=== PATIENT | female | born 1945 | race Caucasian/White ===

== ENCOUNTER 2019-04-10 10:33 | Outpatient (CLI) | payer MEDICARE, OTHER, SELFPAY ==
--- NOTE | ~2019-04-10 | US_ITS ---
US venous doppler [facility] DATE: 04/10/2019 11:37 INDICATION: Bilateral lower extremity pain TECHNIQUE: Real-time and color flow imaging and Doppler analysis of the veins of the lower extremitie s COMPARISON: None FINDINGS: The greater saphenous veins are patent. There is spontaneous and phasic flow and normal aug mentation and color flow signal and normal compression of the deep veins of both legs. IMPRESSION: No evidence of deep venous thrombosis of either lower extremity Reviewed, dictated and finalized at Location [facility]. Reviewed, dictated and finalized at location B. [place] [employer] SPECIALIST
== END 2019-04-10 10:34 | disposition home or self-care (01) ==
LOC: ANHIMG 10:38
PROVIDERS: PCP Family Medicine; Visit Provider Family Medicine
DX: R60.9 Edema, unspecified (principal); M79.669 Pain in unspecified lower leg
CPT/HCPCS: 93970

== ENCOUNTER 2019-06-16 21:51 | Inpatient (IN) | payer MEDICARE, OTHER, SELFPAY ==
--- NOTE | ~2019-06-16 | CT_ITS ---
EXAMINATION: CT brain wo con DATE: 06/16/2019 22:02 INDICATION: Cerebral vascular accident. TECHNIQUE: Computed tomography (CT) of the head was performed without intravenous contrast. The mA wa s adjusted according to patient size. Iterative reconstruction technique was employed. The dose-lengt h product was 983.67 mGy-cm. COMPARISON: Head CT 08/08/2018 FINDINGS: There is mild motion artifact. There are scattered areas of low attenuation in the cerebral white matter, which is within normal limits for the patient's age. There is no intracranial hemorrha ge, acute infarction, or abnormal intracranial mass lesion. The ventricles are normal in size. There is mild mucosal thickening in the ethmoid sinuses. The mastoid air cells are normal. The orbits are n ormal. IMPRESSION: 1. Normal aging brain. Reviewed, dictated and finalized at location A. IMPRESSION: 1. Normal aging brain.
--- NOTE | ~2019-06-16 | XR_ITS ---
EXAMINATION: XR humerus LT DATE: 06/16/2019 22:57 INDICATION: Left upper arm injury. TECHNIQUE: 2 views of left humerus were obtained. COMPARISON: None. FINDINGS: Bone alignment is normal. No fracture. There is mild osteoarthritis of glenohumeral joint a nd moderate osteoarthritis of acromioclavicular joint. IMPRESSION: 1. Polyarticular osteoarthritis. Reviewed, dictated and finalized at location A.
--- NOTE | ~2019-06-16 | MR_ITS ---
EXAMINATION: MR brain/brain stem wo/w con DATE: 06/17/2019 09:33 INDICATION: Cerebrovascular accident. TECHNIQUE: Magnetic resonance imaging (MRI) of the brain and brainstem was performed without and with 17 mL MultiHance intravenous contrast. Sequences included sagittal and axial T1-weighted FSE, axial diffusion-weighted FS EPI, axial T2*-weighted GRE, axial T2-weighted FLAIR Propeller, and axial T2-we ighted Propeller. Postcontrast sequences included axial and coronal T1-weighted FSE. Apparent diffusi on coefficient (ADC) maps were created. COMPARISON: Head CT 06/16/2019, brain MRI 09/30/2017 FINDINGS: There are scattered areas of nonspecific increased T2-weighted signal intensity in the cere bral white matter, which is within normal limits for the patient's age. There is no intracranial hemo rrhage, acute infarction, or abnormal intracranial mass lesion. The ventricles are normal in size. Th e mastoid air cells are normal. There is mild mucosal thickening in the paranasal sinuses. There is a mucous retention cyst in left maxillary sinus. The orbits are normal. IMPRESSION: 1. Normal aging brain. Reviewed, dictated and finalized at location A. IMPRESSION: 1. Normal aging brain.
--- NOTE | ~2019-06-16 | XR_ITS ---
EXAMINATION: XR chest 2V DATE: 06/16/2019 22:57 INDICATION: Weakness. Transient alteration of awareness. TECHNIQUE: Frontal and lateral views of the chest were obtained. COMPARISON: Chest single view 12/29/2017, chest CT 09/27/2017 FINDINGS: The patient is rotated to her left on the frontal view. There is no pneumonia, pleural effu maine, or pneumothorax. The heart size is normal. IMPRESSION: 1. No acute cardiopulmonary disease. Reviewed, dictated and finalized at location A.
[2019-06-16 22:01] VITALS: BP 104/54; PULSE 63; RESP 20; TEMP 36.7; O2SAT 98
[2019-06-16 22:05] VITALS: BP 104/54; PULSE 58; RESP 20; O2SAT 100
--- NOTE | 2019-06-16 22:09 | ECG_ITS ---
Measurements Intervals [place] Rate: 58 P: 22 CT: 188 QRS: -14 QRSD: 121 T: 1 QT: 426 QTc: 422 Interpretive Statements SINUS BRADYCARDIA POSSIBLE LEFT ATRIAL ENLARGEMENT INTRAVENTRICULAR CONDUCTION DELAY POSSIBLE LEFT VENTRICULAR HYPERTROPHY DELAYED PRECORDIAL R/S TRANSITION BORDERLINE ST-T WAVE ABNORMALITY- ANT/INF LEADS BORDERLINE ECG Electronically Signed On 06-17-2019 7:02:18 CDT by Chaparro Ramos D.O.
--- NOTE | 2019-06-16 22:14 | ED.NEUROSD ---
HPI - Neuro Symptoms/Deficit General Chief Complaint: Suspected CVA Stated Complaint: AMS Time Seen by Provider: 06/16/19 21:55 Source: patient Mode of arrival: ambulatory Limitations: no limitations History of Present Illness HPI Narrative: Patient is a 73-year-old female who presents to the emergency department via EMS with possible stroke. EMS report that patient last known normal was approximately 1600 today. however states patient has been having intermittent symptoms for 3 days. Patient has had slurred speech and multiple falls. Patient has bruising to her left upper arm and reportedly hit her head today. Patient reports that her speech is abnormal. She denies any focal weakness. She is denying any headache at this time. Onset (ago): day(s) (3) Location: speech History of same: No Context: recent fall (Multiple) Related Data Home Medications Medication Instructions Recorded Confirmed acetaminophen 500 mg tablet 1,000 mg PO Q6H PRN tablet 03/04/19 buspirone 5 mg tablet 7.5 mg PO BID tablet 03/04/19 carbidopa 25 mg-levodopa 100 mg 1 tablet PO BID 03/04/19 tablet glucosamine sulfate 250 cap PO 03/04/19 mg-chondroitin sulfate A 200 mg capsule hydrocodone 7.5 mg-acetaminophen 1 tablet PO Q6H PRN 03/04/19 325 mg tablet hydroxyzine HCl 50 mg tablet 50 mg PO QID PRN 03/04/19 lidocaine 5 % topical patch 1 patch TOPICAL DAILY 03/04/19 lorazepam 1 mg tablet 1 mg PO TID PRN 03/04/19 melatonin 10 mg tablet PO .QHS tablet 03/04/19 multivitamin 1 tablet PO DAILY 03/04/19 quetiapine 50 mg tablet 50 mg PO .QHS tablet 03/04/19 mirtazapine mg 06/16/19 06/16/19 quetiapine 06/16/19 tizanidine mg 06/16/19 Allergies Allergy/AdvReac Type Severity Reaction Status Date / Time amoxicillin Allergy Unknown Unknown Verified 06/16/19 22:09 Review of Systems Review of Systems: All systems reviewed & are unremarkable except as noted in HPI and below Neurologic: Reports Abnormal speech present, Reports frequent falls, Denies headache(s) and Denies focal weakness PMFSH Past Medical History Medical History Anxiety Cardiomegaly Essential (primary) hypertension Parkinson's disease PVD (peripheral vascular disease) Surgical History Surgical History Status post total right knee replacement Social History Social History Social History: Smoking status: Never smoker Second hand tobacco smoke exposure: No Alcohol intake: never Substance use: never Substance use type: does not use Gender identity (if verbalized by the patient): Female Exam Const: General: cooperative, no acute distress and alert Nutritional Appearance: well nourished Orientation/consciousness: oriented to person, oriented to place and No oriented to time (Knows month, but disoriented to year) HENMT: Mouth: Yes lip normal and Yes moist mucous membranes Eyes: Conjunctivae: conjunctivae normal Pupils: Equal, round and reactive pupils present EOM: EOMs intact bilaterally Resp: Effort & Inspection: normal respiratory effort Auscultation: clear to auscultation bilaterally Cardio: Rate: regular rate Rhythm: regular rhythm GI: GI Palp: Yes Soft to palpation and No Tenderness to palpation present (GI) Auscultation: normal bowel sounds Skin: General skin exam: normal color Neuro: General: oriented to person, oriented to place and No oriented to time Cranial nerves: Yes CN's II-XII intact bilaterally Cognition (Neuro): normal cognition Speech: Abnormal speech present slurred Motor exam (neuro): 5/5 motor strength present throughout and Pronator motor function not present Sensory Exam: normal sensation Extrem: General: normal to inspection, full ROM and no clubbing, cyanosis or edema Psych: Mental Status: mental status grossly nor
[2019-06-16 22:33] LABS: Basophils Percent Auto 0.4 % (0.2-1.2); Eosinophils Absolute Auto 0.1 K/mm3 (0-0.3); Eosinophils Percent Auto 1.8 % (0-4.4); Hemoglobin 10.9 g/dL (12.0-15.0); Immature Granulocyte Absolute 0.02 K/mm3 (0.00-0.031); Immature Granulocyte Percent A 0.3 % (0-0.5); Lymphocytes Absolute Auto 1.33 K/mm3 (0.9-3.2); Lymphocytes Percent Auto 18.5 % (18.3-44.2); Mean Corpuscular Hemoglobin 31.2 pg (26-34); Mean Corpuscular Volume 94.6 fl (80-100); Monocytes Absolute Auto 0.5 K/mm3 (0.1-0.6); Monocytes Percent Auto 7.2 % (2.6-8.5); Neutrophils Absolute Auto 5.2 K/mm3 (1.3-6.7); Neutrophils Percent Auto 71.8 % (45.5-73.1); Platelet Count Result 110 k/mm3 (150-375); Red Blood Count 3.49 M/mm3 (4.2-5.4); Red Cell Distribution Width 13.6 % (11.5-14.5); White Blood Count 7.2 K/mm3 (4.5-10.0)
[2019-06-16 22:43] LABS: INR 1.1; Prothrombin Time 13.5 Seconds (11.1-14.7)
[2019-06-16 22:44] LABS: Partial Thromboplastin Time 34.6 SECONDS (22.3-36.8)
[2019-06-16 22:45] LABS: Albumin Level 3.1 g/dL (3.5-5.1); Alkaline Phosphatase 93 U/L (38-126); Aspartate Amino Transferase 21 U/L (14-36); Bilirubin,Total 0.4 mg/dL (0.2-1.3); Blood Urea Nitrogen 35 mg/dL (7-17); Calcium 8.5 mg/dL (8.4-10.2); Carbon Dioxide 28 mmol/L (22-30); Chloride 104 mmol/L (98-107); Estimated Glomerular Filt Rate > 60; Glucose 119 mg/dL (65-105); Potassium 3.8 mmol/L (3.4-5.0); Sodium 136 mmol/L (137-145)
[2019-06-16 22:47] LABS: Add Urine Microscopic? YES; Appearance Urine Clear (Clear); Bilirubin Urine Negative (Negative); Blood Urine Negative (Negative); Color Urine Amber (Yellow); Glucose Urine UA Negative (Negative); Ketones Urine Trace mg/dL (Negative); Leukocyte Esterase Ur Negative LEU/UL (Negative); Mucus Urine Rare /lpf; Nitrate Urine Negative (Negative); Protein Urine Negative (Negative); RBC Urine 0-2 /hpf (0-2); Specific Grav Ur 1.019 (1.001-1.035); Urobilinogen Urine Negative mg/dL (<2.0); WBC Urine 0-3 /hpf
[2019-06-16 22:57] LABS: Troponin I < 0.012 ng/mL (0.000-0.034)
[2019-06-16 23:07] LABS: Alanine Aminotransferase < 4 U/L (4-35)
[2019-06-16 23:58] VITALS: BP 142/74; PULSE 60; RESP 18; O2SAT 100
[2019-06-17] VITALS (8 sets, daily range): BP systolic 114–157; BP diastolic 67–78; PULSE 64–87; RESP 18–20; TEMP 36.1–37; O2SAT 92–98; BMI 32.1
--- NOTE | 2019-06-17 | ECHO_ITS ---
Patient Info Name: Ruth Tejada Age: 73 years : 1945 Gender: Female Ht: 65 in Wt: 193 lbs BSA: 2.04 m2 HR: 78 bpm BP: 157 / 75 mmHg Technical Quality: Good Exam Date: 06/17/2019 10:00 AM Exam Location: [facility] Patient Status: Inpatient Admit Date: 06/17/2019 Staff Ordering Physician: Ronal Scott MD [employer] Press Tender: Dylan Morocho RDCS, RT Attending Provider: Kranthi Landa PA-C Referring Physician: Tyler MASON; Exam Type: CA echo doppler color flow Study Info Indications - r/o cva Complete two-dimensional, color flow and Doppler transthoracic echocardiogram is performed. Summary 1. Left ventricular chamber dimension is moderately enlarged. 2. Left ventricular systolic function is normal, estimated at 60-65%. 3. The left ventricular diastolic function is grade I diastolic dysfunction. 4. E/e' 10 is mildly elevated. 5. Global longitudinal strain is normal at -19.8%. 6. Left atrial chamber dimension is severely enlarged. 7. Right atrial chamber dimension is mildly enlarged. 8. There is mild aortic valve sclerosis. 9. The mitral valve has mildly calcified annulus. 10. There is mild mitral valve regurgitation. 11. There is mild tricuspid valve regurgitation. 12. There is trace pulmonic regurgitation. 13. Dilated inferior vena cava with >50% collapse upon inspiration consistent with elevated right atrial pressure, 10 mmHg. Left Ventricle E/e' 10 is mildly elevated. Global longitudinal strain is normal at -19.8%. Left ventricular chamber dimension is moderately enlarged. Left ventricular systolic function is normal, estimated at 60-65%. The left ventricular diastolic function is grade I diastolic dysfunction. Right Ventricle Right ventricular chamber dimension is normal. Right ventricular systolic function is normal. Left Atria Left atrial chamber dimension is severely enlarged. Right Atria Right atrial chamber dimension is mildly enlarged. Aortic Valve The aortic valve is trileaflet. There is mild aortic valve sclerosis. There is no aortic valve stenosis. There is no aortic valve regurgitation. Pulmonic Valve There is trace pulmonic regurgitation. Mitral Valve The mitral valve has mildly calcified annulus. There is no mitral valve stenosis. There is mild mitral valve regurgitation. Tricuspid Valve There is mild tricuspid valve regurgitation. RVSP is not calculated due to an inadequate TR jet. Pericardium/Pleural There is no pericardial effusion. Inferior Vena Cava Dilated inferior vena cava with >50% collapse upon inspiration consistent with elevated right atrial pressure, 10 mmHg. Aorta The aortic root size at the sinus of Valsalva is normal. Left Ventricular Outflow Tract Name Value Normal LVOT Doppler LVOT Peak Gradient 6 mmHg LVOT Mean Gradient 3 mmHg LVOT VTI 26 cm LVOT VTI/AV VTI Ratio 0.7 Mitral Valve Name Value Normal MV Doppler
--- NOTE | 2019-06-17 00:26 | ADMGEN ---
This patient, Ruth Tejada, was admitted to Medical Room 247-. Patient/family oriented to hospital policies and general routines including ID bracelet, bed and alarms, visiting hours, pain management, procedures, bathroom and other care routines, personal items, smoking policy, room service/diet, and visiting hours. Valuables list has been completed. Information on how to activate the Rapid Response Team has been discussed. Patient/Family are encouraged to report perceived risks to care and to ask questions if they do not understand what they are told or what they should do.
--- NOTE | 2019-06-17 02:50 | PM.IMHP ---
H&P: HPI History of Present Illness Chief complaint: CVA Narrative: This is a pleasant 73 year old female with known Parkinson's disease who presented to the hospital yesterday evening with a complaint of stroke like symptoms. The patient reports that she has had difficulty speaking intermittently for the past three days. She denies any worsening of her Parkinson's symptoms recently. She has been taking her home medications as prescribed. She has noticed over the past few days that she has had slurred speech and has been jumbling up her words. She denies any visual disturbances, blurry vision, or double vision. She denies any difficulty swallowing, numbness, tingling, or focal weakness. She does however report frequent falls and this morning did suffer a fall when she hit her vanity. She sustained bruising of her left upper arm and the left side of her chin. The patient denies any headache, fevers, chills, cough, neck stiffness, chest pain, shortness of breath, abdominal pain, dysuria, hematuria, diarrhea, nausea, vomiting, LE swelling, or passing out. The patient was evaluated in the ER this evening and CT brain was unremarkable for acute pathology. We have been asked to admit the patient to the hospital for stroke workup. No other complaints. Review of Systems Review of Systems: All systems reviewed & are unremarkable except as noted in HPI and below PMFSH Past Medical History Medical History Anxiety Cardiomegaly Essential (primary) hypertension Parkinson's disease PVD (peripheral vascular disease) Surgical History Surgical History Status post total right knee replacement Family History Family History Mother Family history of arthritis Grandparent Family history of Parkinson's disease Other Family history of malignant neoplasm Social History Social History Social History: Smoking status: Never smoker Second hand tobacco smoke exposure: No Alcohol intake: never Substance use: never Substance use type: does not use Gender identity (if verbalized by the patient): Female Spiritual care concerns: No Agree to blood products: Yes Meds Home Medications and Allergies Home Medications Medication Instructions Recorded Confirmed Type lisinopril 30 mg tablet 30 mg PO DAILY #90 tablet 02/19/19 06/17/19 Rx trazodone 100 mg tablet 100 mg PO .QHS PRN #90 tablet 02/19/19 06/17/19 Rx acetaminophen 500 mg tablet 1,000 mg PO Q6H PRN tablet 03/04/19 06/17/19 History hydrocodone 7.5 mg-acetaminophen 1 tablet PO Q6H PRN 03/04/19 06/17/19 History 325 mg tablet melatonin 10 mg tablet 10 mg PO .QHS tablet 03/04/19 06/17/19 History quetiapine 50 mg tablet 50 mg PO .QHS tablet 03/04/19 06/17/19 History furosemide 20 mg tablet 20 mg PO QAM #90 tablet 05/27/19 06/17/19 Rx mirtazapine 15 mg PO .QHS 06/16/19 06/17/19 History tizanidine See Rx Instructions .ROUTE .COMPLEX 06/16/19 06/17/19 History amitriptyline 50 mg PO DAILY 06/17/19 06/17/19 History bupropion HCl 150 mg PO DAILY 06/17/19 06/17/19 History carbidopa-levodopa See Rx Instructions .ROUTE .COMPLEX 06/17/19 06/17/19 History Allergies Allergy/AdvReac Type Severity Reaction Status Date / Time amoxicillin Allergy Unknown Unknown Verified 06/16/19 22:09 Vital Signs Vital Signs - 24 hr 06/16/19 22:01 06/16/19 22:05 06/16/19 23:58 Temperature 36.7 C Pulse Rate 63 58 L 60 Respiratory Rate 20 20 18 Blood Pressure 104/54 L 104/54 L 142/74 H Pulse Oximetry 98 100 100 06/17/19 00:29 Temperature 36.1 C L Pulse Rate 64 Respiratory Rate 20 Blood Pressure 141/78 H Pulse Oximetry 95 Exam Const: General: cooperative, no acute distress, alert and awake Nutritional Appearance: well nourished Orientation/consciousnes
--- NOTE | 2019-06-17 03:54 | PC.NURSE ---
Pt was unaware medications were at bedside. was called to confirm medications and informed me they were with her possessions. Medications labeled and placed in med room.
[2019-06-17 05:37] LABS: Basophils Percent Auto 0.1 % (0.2-1.2); Eosinophils Absolute Auto 0.1 K/mm3 (0-0.3); Eosinophils Percent Auto 1.8 % (0-4.4); Hematocrit 35.4 % (37.0-47.0); Hemoglobin 11.7 g/dL (12.0-15.0); Immature Granulocyte Absolute 0.03 K/mm3 (0.00-0.031); Immature Granulocyte Percent A 0.4 % (0-0.5); Lymphocytes Absolute Auto 1.15 K/mm3 (0.9-3.2); Lymphocytes Percent Auto 16.9 % (18.3-44.2); Mean Corpuscular HGB Conc 33.1 g/dl (32-36); Mean Corpuscular Hemoglobin 31.5 pg (26-34); Mean Corpuscular Volume 95.2 fl (80-100); Mean Platelet Volume 9.8 fl (7.4-10.4); Monocytes Absolute Auto 0.5 K/mm3 (0.1-0.6); Monocytes Percent Auto 7.1 % (2.6-8.5); Neutrophils Percent Auto 73.7 % (45.5-73.1); Platelet Count Result 117 k/mm3 (150-375); Red Blood Count 3.72 M/mm3 (4.2-5.4); Red Cell Distribution Width 13.4 % (11.5-14.5); White Blood Count 6.8 K/mm3 (4.5-10.0)
[2019-06-17 05:45] LABS: Cholesterol 138 mg/dL (0-200); HDL Direct 48 mg/dL; Triglycerides 74 mg/dL (<150)
[2019-06-17 05:49] LABS: Blood Urea Nitrogen 30 mg/dL (7-17); Calcium 8.8 mg/dL (8.4-10.2); Carbon Dioxide 32 mmol/L (22-30); Chloride 108 mmol/L (98-107); Estimated CRCL calculation 53 ml/min; Estimated Glomerular Filt Rate > 60; Glucose 111 mg/dL (65-105); Sodium 141 mmol/L (137-145)
[2019-06-17 05:55] LABS: LDL Cholesterol Direct 57 mg/dL
[2019-06-17] MEDS: CARBIDOPA/LEVODOPA 12.5/50 MG TABLET 1 TABLET PO ×5 (06:08→21:16)
[2019-06-17] MEDS: CARBIDOPA/LEVODOPA 25/100 MG TABLET 2 TABLET BY MOUTH ×5 (06:09→21:18)
[2019-06-17] MEDS: lisinopriL 10 MG TABLET 30 MG PO (08:20)
[2019-06-17] MEDS: AMITRIPTYLINE HCL 25 MG TABLET 50 MG PO (08:21)
[2019-06-17] MEDS: FUROSEMIDE 20 MG TABLET PO (08:21)
[2019-06-17] MEDS: buPROPion HCL XL (24 HR) 150 MG TABCR PO (08:21)
[2019-06-17] MEDS: ASPIRIN 81 MG ENTERIC TABLET PO (08:21)
--- NOTE | 2019-06-17 10:13 | CONS_ITS ---
DATE OF CONSULTATION: 06/16/[address] Ronal Scott. HISTORY OF PRESENT ILLNESS: A 73-year-old right-handed female, has been admitted to [facility] through the emergency room where she presented with stroke-like symptoms. She had difficulties in speaking intermittently over the last 72 hours. She has been taking her home medication and reported that she has been experiencing slurred speech and jumbling up her words. She gave no history of associated visual difficulties, difficulties in swallowing, weakness or numbness of one side or other side though she reported frequent falls and on the morning of admission, she fell when she hit her vanity, sustained a bruising of her left upper extremity and left side of her chin. She gave no history of associated generalized symptomatology. CT scan was done in the emergency room, which was negative for an acute process. Interesting to remember that patient has ongoing history of Parkinson disease, in addition to the history of anxiety, cardiomegaly, hypotension, and peripheral vascular disease. In the past, she has also undergone total right knee replacement. She is never a smoker, never drinker and at the time of admission, she was taking Seroquel 50 mg at night and carbidopa and levodopa according to instruction, in addition to the lisinopril 30 mg daily, trazodone 100 mg at night, hydrocodone 7.5/325 one q.6 hours p.r.n., melatonin 10 mg h.s., furosemide 20 mg daily, mirtazapine 15 mg daily, Tizanidine, and amitriptyline 50 mg daily with Wellbutrin 150 mg daily. ALLERGIES: SHE IS ALLERGIC TO AMOXICILLIN. PHYSICAL EXAMINATION: VITAL SIGNS: At the time of admission, she was afebrile with pulse of 63, respiration 20, blood pressure 104/54, subsequently 142/74. GENERAL: Revealed her to be awake, alert, in no obvious acute distress. HEENT: Head normocephalic with no cranial bruit except the bruising on the left side of her chin. Face was normal. NECK: Supple with no cervical bruit. No thyromegaly. No lymphadenopathy. HEART: Regular with no murmur. LUNGS: Clear to auscultation with no rhonchi or crepitation. ABDOMEN: Soft with normal bowel sounds. NEUROLOGICAL: She was awake, alert, oriented x3. Speech slow. Pupils round, regular. Wheeler of vision full. Extraocular movements full. Face symmetrical. Tongue midline. Motor examination revealed her to have generally symmetrical strength with sluggish reflexes, downgoing plantar responses. LABORATORY DATA: Evaluation up until now revealed CBC with no leukocytosis. WBC is 7.2 with hemoglobin 10.9. Basic metabolic panel normal except borderline sodium 136, troponin less than 0.012. Hepatic enzymes, normal. Albumin is low that is 3.1. UA negative. CT scan of the head is negative. IMPRESSION: 1. Parkinson disease for which she is on the medication as mentioned above. 2. Possibility of a transient ischemic attack, in addition to the possibility of exacerbation of parkinsonian symptomatology, resulting in the slurred speech and the gait dysfunction. While she is here, we will try to increase the oral antiparkinsonian medication and monitor the response. Thank you very much for letting me evaluate this patient. At this stage, according to review of the medication, nothing has been changed. JITENDRA SOTO M.D. DIGITAL CAMPAIGN MANAGER DIGITAL CAMPAIGN MANAGER D I MT: Simran
[2019-06-17] MEDS: ACETAMINOPHEN 325 MG TABLET 650 MG PO (11:55)
--- NOTE | 2019-06-17 13:53 | PCOTNOTE ---
OT evaluation attempted this date. Patient refused evaluation x2 stating that she does not want to do it. Will attempt at later time.
--- NOTE | 2019-06-17 13:54 | PCPTNOTE ---
PT eval orders received. Ruth has refused PT eval x 2 this date. Will try again tomorrow.
--- NOTE | 2019-06-17 14:49 | PM.IMPN ---
Progress Note: A&P Assessment and Plan (1) Slurred speech: Code(s): R47.81 - Slurred speech Status: Acute Assessment and Plan: MRI of the brain was grossly unremarkable. Lipids, TSH unremarkable. Echo unremarkable for etiology of symptoms. Neurology has been consulted and appreciate recommendations. Patient okay for discharge from Neurology standpoint with follow up with her Neurologist or Dr. To after discharge for possible adjustments in her medications Patient medically stable for discharge, but will need PT/OT evaluation prior to discharge with . CC also to discuss possibility of SNF placement if patient and agreeable given her recent falls Will await further disposition rec from Patient to be evaluated tomorrow by PT/OT for further recommendations (2) Parkinson's disease: Code(s): G20 - Parkinson's disease Status: Chronic Assessment and Plan: continue home Sinemet PO. Neurology recommends follow up for possible adjustments (3) Anxiety: Code(s): F41.9 - Anxiety disorder, unspecified Status: Chronic Assessment and Plan: Continue home meds. Nursing states patient was extremely anxious this morning despite her medications and refused PT/OT twice today Will add 0.5 mg Ativan PRN for anxiety Subjective Date/time seen: 06/17/19 14:49 Interval history: Patient is a 73 yo F with history of Parkinson's who is here for evaluation for slurred speech/stroke like symptoms. Patient states she is feeling okay today; she notes she was very anxious this morning. She has no other complaints at this moment. Denies f/c/s, myalgias/arthralgias, headaches, dizziness, lightheadedness, changes in v/h, cp/palpitations, sob/cough, n/v/d/c, abd pain, changes in BMs, dysuria, hematuria, cloudy urine, calf pain/swelling, vision loss, one sided arm/leg weakness, facial droop. Review of Systems Review of Systems: All systems reviewed & are unremarkable except as noted in HPI and below Exam Narrative: Exam Narrative: Patient lying supine in bed at time of visit Const: General: cooperative, comfortable, no acute distress, well developed, alert and awake Nutritional Appearance: well nourished Orientation/consciousness: patient oriented x3 HENMT: Head: normal to inspection and other (Bruising of left side of her chin+) General nose exam: Normal nares present Face and sinus: face symmetric Mouth: Yes moist mucous membranes Eyes: General: appearance normal, both eyes and all related structures Sclera: sclerae normal Pupils: Equal, round and reactive pupils present EOM: EOMs intact bilaterally Neck: Neck: trachea midline and supple Resp: Effort & Inspection: normal respiratory effort Auscultation: clear to auscultation bilaterally Cardio: Rate: regular rate Rhythm: regular rhythm Heart sounds: no murmurs GI: Inspection: non-distended GI Palp: No abdominal tenderness and Yes Soft to palpation Auscultation: normal bowel sounds and Hypoactive bowel sounds present Skin: General skin exam: normal color and ecchymosis (Bruising of left upper arm++ ) Neuro: General: patient oriented x3, moves all extremities and no focal motor deficits Cranial nerves: Yes CN's II-XII intact bilaterally and Yes Equal, round and reactive pupils present Speech: Abnormal speech present garbled, slurred and stuttering Motor exam (neuro): 5/5 motor strength present throughout Sensory Exam: normal sensation Extrem: General: normal to inspection and no edema Psych: Mental Status: mental status grossly normal Affect: normal affect Objective Data Vital Signs Vital Signs: Last Vital Signs Temp 98.1 F 06/17/19 13:40 Pulse 73 06/17/19 13:40 Resp 18 06/17/19 13:40 BP 150/77 H 06/17/19 13:40 Pulse Ox 92 06/17/19 13:40 Intake/Output Intake/Output: Intake
[2019-06-17] MEDS: LORAZEPAM INJ 2 MG/ML VIAL 0.5 MG IV PUSH (16:42)
[2019-06-17] MEDS: MIRTAZAPINE 15 MG TABLET PO (21:18)
[2019-06-17] MEDS: QUEtiapine FUMARATE 25 MG TABLET 50 MG PO (21:18)
--- NOTE | 2019-06-17 21:46 | PC.NURSE ---
Pt observed attempting to eat an empty sherbert stuffed with a napkin, she was unable to differentiate orange sherbert from a white napkin. When taking pills she took them by two's in her hand, with all three groups of pills she attempted to grab the ring on her finger, multiple times, thinking it was a pill.
[2019-06-18] VITALS: PULSE 62
[2019-06-18] MEDS: LORAZEPAM INJ 2 MG/ML VIAL 0.5 MG IV PUSH (03:53)
[2019-06-18 04:00] VITALS: PULSE 74
[2019-06-18 05:15] LABS: Hematocrit 38.4 % (37.0-47.0); Hemoglobin 12.7 g/dL (12.0-15.0); Immature Platelet Fraction Pct 2.3 % (0.9-11.2); Mean Corpuscular HGB Conc 33.1 g/dl (32-36); Mean Corpuscular Hemoglobin 31.4 pg (26-34); Mean Platelet Volume 9.3 fl (7.4-10.4); Platelet Count Result 142 k/mm3 (150-375); Red Blood Count 4.04 M/mm3 (4.2-5.4); Red Cell Distribution Width 13.2 % (11.5-14.5)
[2019-06-18 05:35] LABS: Blood Urea Nitrogen 17 mg/dL (7-17); Calcium 8.9 mg/dL (8.4-10.2); Carbon Dioxide 32 mmol/L (22-30); Chloride 106 mmol/L (98-107); Estimated CRCL calculation 66 ml/min; Estimated Glomerular Filt Rate > 60; Glucose 92 mg/dL (65-105); Potassium 3.8 mmol/L (3.4-5.0); Sodium 139 mmol/L (137-145)
[2019-06-18 06:00] VITALS: BP 128/76; PULSE 65; RESP 18; TEMP 36.9; O2SAT 96
[2019-06-18] MEDS: CARBIDOPA/LEVODOPA 25/100 MG TABLET 2 TABLET BY MOUTH ×2 (06:00→11:18)
[2019-06-18] MEDS: CARBIDOPA/LEVODOPA 12.5/50 MG TABLET 1 TABLET PO ×2 (06:00→11:17)
[2019-06-18 08:00] VITALS: PULSE 69
[2019-06-18] MEDS: FUROSEMIDE 20 MG TABLET PO (08:38)
[2019-06-18] MEDS: buPROPion HCL XL (24 HR) 150 MG TABCR PO (08:38)
[2019-06-18] MEDS: AMITRIPTYLINE HCL 25 MG TABLET 50 MG PO (08:38)
[2019-06-18] MEDS: ASPIRIN 81 MG ENTERIC TABLET PO (08:38)
[2019-06-18] MEDS: lisinopriL 10 MG TABLET 30 MG PO (08:38)
--- NOTE | 2019-06-18 11:13 | WPDNEUROPN ---
Progress Note: A&P Additional Plan stable ,will add plavix had echo very abnormal Review of Systems Review of Systems: All systems reviewed & are unremarkable except as noted in HPI and below Exam Const: General: cooperative, healthy appearing, comfortable and no acute distress Nutritional Appearance: average body habitus Limitations: no limitations Eyes: General: appearance normal, both eyes and all related structures Neck: Neck: full ROM Resp: Effort & Inspection: normal respiratory effort and able to speak in complete sentences Auscultation: clear to auscultation bilaterally Cardio: Rate: regular rate Rhythm: regular rhythm GI: Auscultation: normal bowel sounds Skin: General skin exam: no rashes or lesions noted Neuro: General: patient oriented x3 and moves all extremities Cranial nerves: Yes CN's II-XII intact bilaterally, Yes Equal, round and reactive pupils present, Yes Bilaterally intact EOM present, Yes Nystagmus not present, Yes facial symmetry, Yes Midline tongue present and Yes Ability to bilaterally rotate head present Cognition (Neuro): normal cognition Speech: normal speech Motor exam (neuro): 5/5 motor strength present throughout Sensory Exam: normal sensation Deep tendon reflexes (DTR's): Right triceps reflex intensity grade: 1+, Left triceps reflex intensity grade: 1+, Rt Biceps (C5, C6): 1+, Left biceps reflex intensity grade: 1+, Right brachioradialis reflex intensity grade: 1+, Left brachioradialis reflex intensity grade: 1+, Right patellar reflex intensity grade: 1+, Left patellar reflex intensity grade: 1+, Right ankle reflex intensity grade: 1+ and Left ankle reflex intensity grade: 1+ Plantar Reflex Responses: downgoing: bilateral Psych: Appearance: grossly normal Affect: normal affect Attitude: cooperative Thought process: Normal thought process present Thought content: Yes Normal thought content present Insight: Good insight present (Psych) Objective Data Vital Signs Vital Signs: Vital Signs - 24 hr 06/17/19 12:00 06/17/19 13:40 06/17/19 16:00 Temperature 36.7 C Pulse Rate 87 73 75 Respiratory Rate 18 Blood Pressure 150/77 H Pulse Oximetry 92 06/17/19 20:00 06/17/19 22:00 06/18/19 00:00 Temperature 37.0 C Pulse Rate 66 64 62 Respiratory Rate 20 Blood Pressure 114/67 Pulse Oximetry 95 06/18/19 04:00 06/18/19 06:00 Temperature 36.9 C Pulse Rate 74 65 Respiratory Rate 18 Blood Pressure 128/76 Pulse Oximetry 96 Intake/Output Intake/Output: Intake & Output 06/15/19 06/16/19 06/17/19 06/18/19 23:59 23:59 23:59 23:59 Intake Total 1095 590 Output Total 1525 550 Balance -430 40 Meds/Results Medications: Active Medications Generic Name Dose Route Start Last Admin Trade Name Mathieu PRN Reason Stop Dose Admin Acetaminophen 650 mg 06/17/19 03:01 06/17/19 11:55 Tylenol Tablet PO 650 mg Q4H PRN Administration Mild Pain (1-3) or Fever Amitriptyline HCl 50 mg 06/17/19 09:00 06/18/19 08:38 Elavil PO 50 mg DAILY DENI Administration Aspirin 81 mg 06/17/19 09:00 06/18/19 08:38 Aspirin Ec PO 81 mg QAM DENI Administration Bupropion HCl 150 mg 06/17/19 09:00 06/18/19 08:38 Wellbutrin Xl (24 Hr) PO 150 mg DAILY DENI Administration Carbidopa/Levodopa 1 tablet 06/17/19 06:00 06/18/19 06:00 Sinemet 12.5/50 Mg PO 1 tablet 0600,1200,1500,1800 DENI Administration Carbidopa/Levodopa 1 tablet 06/17/19 21:00 06/17/19 21:16 Sinemet 12.5/50 Mg PO 1 tablet 2100 DENI Administration Carbidopa/Levodopa 2 tablet 06/17/19 06:00 06/18/19 06:00 Sinemet 25/100 Mg BY MOUTH 2 tablet 0600,1200,1500,1800 DENI Administration Carbidopa/Levodopa 2 tablet 06/17/19 21:00 06/17/19 21:18 Sinemet 25/100 Mg BY MOUTH 2 tablet 2100 DENI Administration Furosemide 20 mg 06/17/19 09:00 06/18/19 08:38 Lasix Tablet PO 20 mg QAM DENI Administration Lisinopril 30 mg 06/17/19 09:00
[2019-06-18 12:00] VITALS: PULSE 77
--- NOTE | 2019-06-18 12:43 | PM.DS ---
DS: Diagnosis Admitting Diagnosis Admitting Diagnosis: Slurred speech Discharge Diagnosis (1) Slurred speech: Code(s): R47.81 - Slurred speech Status: Acute Assessment and Plan: MRI of the brain was grossly unremarkable. Lipids, TSH unremarkable. Echo unremarkable for etiology of symptoms. Neurology evaluated the patient and feels like she can be discharged from this standpoint. Dr. To would like the patient started on aspirin 81 mg and Plavix daily. The patient walked with physical therapy down the [place] today and did very well. The patient will be discharged home with home health. Recommended her to follow-up with her neurologist as an outpatient for further evaluation. (2) Parkinson's disease: Code(s): G20 - Parkinson's disease Status: Chronic Assessment and Plan: Continue home Sinemet PO and have her follow-up with her neurologist. (3) Anxiety: Code(s): F41.9 - Anxiety disorder, unspecified Status: Chronic Assessment and Plan: Continue home meds. Nursing states patient was extremely anxious this morning despite her medications and refused PT/OT twice today DS: Summary Hospital Course Reason for hospitalization: Patient is a 73-year-old woman with a history of Parkinson's disease, presented to the emergency department with stroke-like symptoms with slurred speech intermittently for the past 3 days. Patient had also had fall and has bruising to her left lower jaw, left bicep and bilateral knees. Initial vitals showed temperature of 98?, blood pressure 104/54, heart rate 63, respiratory rate 20, oxygen saturation 98% on room air. Labs showed normal CBC with differential other than slight normocytic anemia, normal coag panel, slight hyponatremia at 136, elevated BUN at 35, creatinine 0.8, normal urinalysis. CT head showed normal aging brain. MRI showed normal aging brain. Echocardiogram showed moderately enlarged left ventricle chamber but a normal systolic function with an EF of 60-65%, LV diastolic dysfunction grade I. The patient was evaluated by our neurologist who recommended starting the patient on an aspirin 81 mg and Plavix daily due to her TIA like symptoms. They did not make any adjustments to her Parkinson's medications at this time. Patient is feeling much better today and walked out the halls with physical and occupational therapy. Patient is back to her baseline denies any slurred speech or neurologic deficits. She is stable to be discharged home with home health. Recommended follow-up with her neurologist within 1-2 weeks. Status at Discharge Cognitive/behavioral status at discharge: Stable, improved. Time Spent with Patient Time attestation: Total time spent providing and/or coordinating discharge services: Time spent: Greater than 30 minutes Exam Narrative: Exam Narrative: General: 73-year-old woman sitting up in the chair eating her lunch. Appears comfortable. In no acute distress. Skin: Areas of ecchymosis to left anterior bicep, bilateral anterior knees and proximal shins, and to her left lower cheek. No open abrasion, scabbing or other injury. No jaundice or cyanosis. Good skin turgor. Neck: Full range of motion. Supple. Respiratory: Lungs are clear to auscultation bilaterally. No bony chest wall tenderness. Cardiovascular: The heart has a regular rate and rhythm without murmur. Lower extremities: No lower extremity edema. Distal pulses are easily palpated. No calf tenderness to palpation. Gastrointestinal: The abdomen is soft, nontender and nondistended with active bowel sounds. Psychiatric: Lucid and oriented. Memory intact. Neurologic: Alert and oriented x4. Strength equal bilaterally to upper and lower extremities. No sensation changes. She was walking with a walker wit
== END 2019-06-18 13:30 | disposition home health service (06) | DRG 93 ==
LOC: ANHED 22:09 → ANH2MED 23:37
PROVIDERS: Physician Assistant; Admitting Provider Family Medicine; Emergency Provider Emergency Medicine; PCP Family Medicine; Visit Provider Family Medicine
DX: R47.81 Slurred speech (principal); G20 Parkinson's disease; F41.9 Anxiety disorder, unspecified; I10 Essential (primary) hypertension; I73.9 Peripheral vascular disease, unspecified; Z96.651 Presence of right artificial knee joint; R29.701 NIHSS score 1; R26.9 Unspecified abnormalities of gait and mobility; S40.022A Contusion of left upper arm, initial encounter; S00.83XA Contusion of other part of head, initial encounter; W18.00XA Striking against unspecified object with subsequent fall, initial encounter; Z91.81 History of falling; S80.02XA Contusion of left knee, initial encounter; S80.01XA Contusion of right knee, initial encounter
CPT/HCPCS: 36415; 51701; 70450; 70553; 71046; 73060; 80048; 80053; 80061; 81001; 83735; 84443; 84484; 85025; 85027; 85055; 85610; 85730; 93005; 93306; 97162; 97165; 99285; A9270; A9577; G0378; J2060

== ENCOUNTER 2019-08-27 11:52 | Outpatient (CLI) | payer MEDICARE, OTHER, SELFPAY ==
--- NOTE | ~2019-08-27 | XR_ITS ---
EXAMINATION: XR shoulder LT min 2V DATE: 08/27/2019 12:57 INDICATION: Unsteadiness on feet. TECHNIQUE: 4 views of left shoulder were obtained. COMPARISON: Left humerus radiographs 06/16/2019 FINDINGS: Bone alignment is normal. No fracture. There is mild osteoarthritis of glenohumeral joint a nd acromioclavicular joint. IMPRESSION: 1. Mild polyarticular osteoarthritis. Reviewed, dictated and finalized at location A.
--- NOTE | ~2019-08-27 | XR_ITS ---
EXAMINATION: XR hip LT min 3V w AP pelvis, XR femur LT min 2V DATE: 08/27/2019 12:57 INDICATION: Unsteadiness on feet TECHNIQUE: 1. Anteroposterior view of the pelvis and anteroposterior, frog leg and cross-table lateral views of the left hip were obtained. 2. AP and lateral views of the left femur were obtained on overlapping proximal and distal images. COMPARISON: None. FINDINGS: Alignment is normal. No fracture or suspected avascular necrosis. Mild polyarticular osteoarthritis w ith mild nonuniform joint space are at the left hip and in the lateral and patellofemoral compartment s of the left knee. No left knee joint effusion. Severe lower lumbar spondylosis. Surgical clip at th e left lower quadrant. IMPRESSION: 1. Mild osteoarthritis at the left hip and knee. No acute osseous abnormality. 2. Severe lower lumbar spondylosis. Reviewed, dictated and finalized at location A. IMPRESSION: 1. Mild osteoarthritis at the left hip and knee. No acute osseous abnormality. 2. Severe lower lumbar spondylosis.
== END 2019-08-27 11:53 | disposition home or self-care (01) ==
PROVIDERS: PCP Family Medicine; Visit Provider Physician Assistant
DX: M25.552 Pain in left hip (principal); M79.602 Pain in left arm; R26.81 Unsteadiness on feet; W19.XXXA Unspecified fall, initial encounter; M19.012 Primary osteoarthritis, left shoulder; M17.12 Unilateral primary osteoarthritis, left knee; M16.12 Unilateral primary osteoarthritis, left hip; M47.816 Spondylosis without myelopathy or radiculopathy, lumbar region
CPT/HCPCS: 73030; 73502; 73552

== ENCOUNTER 2020-01-04 06:51 | Outpatient (NON) | payer MEDICARE, OTHER, SELFPAY ==
[2020-01-05 01:50] LABS: SARS-CoV-2 RNA PCR Positive
== END 2020-01-04 06:52 ==
LOC: ANHCOVIDDT 06:58
PROVIDERS: Visit Provider Family Medicine
DX: U07.1 COVID-19 (principal)
CPT/HCPCS: 87635; C9803; U0003

== ENCOUNTER 2020-02-10 11:06 | Outpatient (CLI) | payer MEDICARE, OTHER, SELFPAY ==
[2020-02-10 12:12] LABS: Albumin Level 3.7 g/dL (3.5-5.1); Alkaline Phosphatase 103 U/L (38-126); Anion Gap 4 mmol/L (8-16); Aspartate Amino Transferase 25 U/L (14-36); Bilirubin,Total 0.5 mg/dL (0.2-1.3); Blood Urea Nitrogen 27 mg/dL (7-17); Calcium 9.1 mg/dL (8.4-10.2); Carbon Dioxide 31 mmol/L (22-30); Chloride 104 mmol/L (98-107); Estimated Glomerular Filt Rate > 60; Glucose 103 mg/dL (65-105); Sodium 139 mmol/L (137-145)
[2020-02-10 13:08] LABS: Alanine Aminotransferase < 6 U/L (4-35)
== END 2020-02-10 11:07 | disposition home or self-care (01) ==
PROVIDERS: PCP Family Medicine; Visit Provider Family Medicine
DX: I10 Essential (primary) hypertension (principal)
CPT/HCPCS: 36415; 80053

== ENCOUNTER 2020-06-01 10:52 | Emergency (ER) | payer MEDICARE, OTHER, SELFPAY ==
--- NOTE | ~2020-06-01 | XR_ITS ---
EXAMINATION: XR lumbar spine 2-3V EXAM DATE: 06/01/2020 12:36 INDICATION: Left-sided lumbosacral pain. TECHNIQUE: Lumber spine frontal, lateral, lateral L5-S1 projections for interpretation. There is no prior study for comparison. FINDINGS: There is moderate lumbar dextroscoliosis. Moderate diffuse lumbar disc disease. Mild loss o f all lumbar vertebral body heights without acute fracture line identified. Sacrum, sacroiliac joints , sacral arcuate lines are intact. The vertebral bodies are aligned in the AP dimension. Moderate to severe lumbar facet arthropathy. There are cholecystectomy clips. IMPRESSION: 1. Moderate diffuse lumbar disc disease. Moderate to severe arthropathy. 2. Moderate dextroscoliosis. Reviewed, dictated and finalized at location A.
[2020-06-01 11:12] VITALS: BP 118/75; PULSE 63; RESP 18; O2SAT 98
[2020-06-01] MEDS: KETOROLAC 30 MG/ML VIAL (*BKC) IM (12:27)
--- NOTE | 2020-06-01 12:30 | PC.NURSE ---
Pt to radiology
--- NOTE | 2020-06-01 13:33 | PC.NURSE ---
Report to AGAPITO Lopez, to continue care.
--- NOTE | 2020-06-01 13:49 | ED.GENADULT ---
HPI - General Adult General Chief complaint: Extremity Injury, Lower Stated complaint: difficulty walking Time Seen by Provider: 06/01/20 11:52 History of Present Illness HPI narrative: Patient is a 74-year-old female who presents ER with low back pain. Ongoing for 3 days. Is start radiating down into her thighs bilaterally. Worse with going from sitting to standing. She now ambulates with a cane which is atypical for her. No focal weakness or numbness that is persistent. No trauma. No saddle anesthesia. She is able to urinate and defecate normally. Related Data Home Medications Medication Instructions Recorded Confirmed melatonin 10 mg tablet 10 mg PO .QHS tablet 03/04/19 10/01/19 mirtazapine 15 mg PO .QHS 06/16/19 10/01/19 tizanidine See Rx Instructions .ROUTE .COMPLEX 06/16/19 10/01/19 bupropion HCl 150 mg PO DAILY 06/17/19 10/01/19 clopidogrel 75 mg tablet 75 mg PO DAILY 06/21/19 10/01/19 gabapentin 100 mg capsule 100 mg PO TID 08/27/19 10/01/19 carbidopa 25 mg-levodopa 100 mg See Rx Instructions .ROUTE .COMPLEX 01/20/20 tablet Allergies Allergy/AdvReac Type Severity Reaction Status Date / Time amoxicillin Allergy Unknown ,Unknown Verified 06/01/20 12:08 Review of Systems Review of Systems: All systems reviewed & are unremarkable except as noted in HPI and below Constitutional: Constitutional: Denies chills, Denies fever(s) and Denies weakness Genitourinary: Genitourinary: Denies nocturia, Denies dysuria and Denies urinary incontinence Musculoskeletal: Musculoskeletal: Reports back pain, Denies arthralgias, Denies joint swelling and Denies muscle cramps Neurologic: Denies focal weakness and Denies numbness [facility] Past Medical History Medical History (Updated 06/01/20 @ 14:04 by Rajesh Amato MD) Anxiety Cardiomegaly Essential (primary) hypertension Parkinson's disease PVD (peripheral vascular disease) Surgical History Surgical History Status post total right knee replacement Family History Family History Mother Family history of arthritis Grandparent Family history of Parkinson's disease Other Family history of malignant neoplasm Social History Social History (Updated 05/20/20 @ 14:27 by Elisabeth Pascual MA) Social History: Smoking status: Never smoker Second hand tobacco smoke exposure: No Alcohol intake: never Substance use: never Substance use type: does not use Gender identity (if verbalized by the patient): Female Spiritual care concerns: No Agree to blood products: Yes Exam Narrative: Exam Narrative: GENERAL: Well-appearing, well-nourished, and in no acute distress. HEAD: Normocephalic, atraumatic. ENT: Mucous membranes moist. CHEST: Clear to auscultation. No respiratory distress. HEART: Regular rate and rhythm. Normal peripheral pulses. EXTREMITIES: Normal range of motion. Normal strength in lower extremities. Patient able to ambulate with cane. Back: No midline tenderness to the thoracic or lumbar spine. There is tenderness bilaterally over the SI region and the glutes. SKIN: Warm, dry, no rash. NEURO: Alert and oriented x3. Course Course Emergency Course: Pain improved with Toradol. Discharge home. Patient has follow-up with pain management in a week. Vital Signs Vital signs: Vital Signs Pulse Rate 63 06/01/20 11:12 Respiratory Rate 18 06/01/20 11:12 Blood Pressure 118/75 06/01/20 11:12 Pulse Oximetry 98 06/01/20 11:12 Pulse Rate 63 06/01/20 11:12 Respiratory Rate 18 06/01/20 11:12 Blood Pressure 118/75 06/01/20 11:12 Pulse Oximetry 98 06/01/20 11:12 Medical Decision Making Vital Signs Vital Signs: Vital Signs Pulse Rate 63 06/01/20 11:12 Respiratory Rate 18 06/01/20 11:12 Blood Pressure 118/75 06/01/20 11:12 Pulse Oximetry 98 06/01/20 11:12 Pulse Rate
[2020-06-01 14:45] VITALS: BP 178/98; PULSE 90; RESP 18; O2SAT 100
== END 2020-06-01 14:46 | disposition home or self-care (01) ==
PROVIDERS: Emergency Provider Emergency Medicine; PCP Family Medicine
DX: M54.42 Lumbago with sciatica, left side (principal); M54.41 Lumbago with sciatica, right side; F41.9 Anxiety disorder, unspecified; I51.7 Cardiomegaly; I10 Essential (primary) hypertension; G20 Parkinson's disease; I49.3 Ventricular premature depolarization; Z96.651 Presence of right artificial knee joint; M51.9 Unspecified thoracic, thoracolumbar and lumbosacral intervertebral disc disorder; M47.816 Spondylosis without myelopathy or radiculopathy, lumbar region
CPT/HCPCS: 72100; 96372; 99283; J1885

== ENCOUNTER → 2020-06-09 09:48 | Outpatient (CLI) | payer MEDICARE, OTHER, SELFPAY ==
--- NOTE | ~2020-06-09 | XR_ITS ---
EXAMINATION: XR knee LT 2V DATE: 06/09/2020 10:23 INDICATION: Left knee pain. TECHNIQUE: 2 views of left knee were obtained. COMPARISON: Left femur radiographs 08/27/2019 FINDINGS: Bone alignment is normal. No fracture. There is mild tricompartmental osteoarthritis charac terized by tiny marginal osteophytes. No knee joint effusion. IMPRESSION: 1. Mild left knee osteoarthritis. Reviewed, dictated and finalized at location B.
--- NOTE | ~2020-06-09 | XR_ITS ---
EXAMINATION: XR knee RT 2V DATE: 06/09/2020 10:23 INDICATION: Right knee pain. TECHNIQUE: 2 views of right knee were obtained. COMPARISON: Right knee radiographs 03/20/2017 FINDINGS: There is a total right knee arthroplasty without patellar resurfacing in near-anatomic alig nment. No periprosthetic lucency to suggest loosening or infection. No fracture. There is mild osteoa rthritis of patellofemoral compartment. There is a small knee joint effusion. IMPRESSION: 1. Total right knee arthroplasty in near-anatomic alignment. 2. Mild osteoarthritis of patellofemoral compartment. 3. Small knee joint effusion. Reviewed, dictated and finalized at location B.
== END ==
PROVIDERS: Visit Provider Nurse Practitioner Family
DX: M17.0 Bilateral primary osteoarthritis of knee (principal); M25.461 Effusion, right knee
CPT/HCPCS: 73560

== ENCOUNTER → 2020-07-06 12:43 | Outpatient (CLI) | payer MEDICARE, OTHER, SELFPAY ==
--- NOTE | ~2020-07-06 | MR_ITS ---
I EXAMINATION: MR lumbar spine wo con EXAM DATE: 07/06/2020 13:38 INDICATION: Lumbar radiculopathy. TECHNIQUE: Multi-sequential, multiplanar MR images of the lumbar spine were obtained without contrast . Sagittal T1, T2, T2 fat saturation images. Axial T2 weighted images. There is no prior study for comparison. FINDINGS: Severe disc disease L2-3 mL L4-5 and L5-S1, moderate to severe at L3-4 and moderate at L1-2 . There is moderate dextroscoliosis centered at L2-3. There is 2-3 mm retrolisthesis L1 on L2, L2 on L3, L3 on L4 and L4 on L5. The conus medullaris terminates at the L1/2 level and has normal signal in tensity and morphology. Mild compression fractures at the L2-3 endplates and the superior endplate o f L4, with edema indicating these are acute or subacute. Paraspinal soft tissue is unremarkable. Level by level evaluation: T12-L1: There is a mild diffuse disc bulge. Facet arthropathy: Mild. Neural foraminal stenosis: No stenosis. Central canal stenosis: No stenosis. L1-L2: There is a mild to moderate diffuse disc bulge. Facet arthropathy: Mild. Neural foraminal stenosis: Mild bilateral. Central canal stenosis: Mild. L2-L3: There is a moderate diffuse disc bulge. Facet arthropathy: Mild to moderate. Neural foraminal stenosis: Moderate to severe left, mild to moderate right. Central canal stenosis: Mild to moderate. L3-L4: There is a moderate diffuse disc bulge. Facet arthropathy: Moderate . Ligamentum flavum enlargement. Neural foraminal stenosis: Moderate bilateral, right greater than left. Central canal stenosis: Moderate. L4-L5: There is a moderate diffuse disc bulge. Facet arthropathy: Moderate. Neural foraminal stenosis: Moderate to severe right, mild to moderate left. Central canal stenosis: Mild. L5-S1: There is a moderate diffuse disc bulge. Facet arthropathy: Mild. Neural foraminal stenosis: Moderate to severe right, mild to moderate left. Central canal stenosis: Mild. IMPRESSION: 1. Moderate to severe lumbar spondylosis. 2. Moderate upper lumbar dextroscoliosis. Reviewed, dictated and finalized at location A.
== END ==
PROVIDERS: PCP Family Medicine; Visit Provider Nurse Practitioner Family
DX: M54.16 Radiculopathy, lumbar region (principal); M47.816 Spondylosis without myelopathy or radiculopathy, lumbar region; M41.86 Other forms of scoliosis, lumbar region
CPT/HCPCS: 72148

== ENCOUNTER 2020-08-04 12:19 | Outpatient (CLI) | payer MEDICARE, OTHER, SELFPAY ==
[2020-08-04 12:51] LABS: Hematocrit 37.1 % (37.0-47.0); Hemoglobin 12.5 g/dL (12.0-15.0); Immature Platelet Fraction Pct 2.1 % (0.9-11.2); Mean Corpuscular HGB Conc 33.7 g/dl (32-36); Mean Corpuscular Hemoglobin 31.9 pg (26-34); Mean Corpuscular Volume 94.6 fl (80-100); Mean Platelet Volume 9.3 fl (7.4-10.4); Platelet Count Result 156 k/mm3 (150-375); Red Blood Count 3.92 M/mm3 (4.2-5.4); Red Cell Distribution Width 13.2 % (11.5-14.5); White Blood Count 4.7 K/mm3 (4.5-10.0)
[2020-08-04 12:53] LABS: Add Urine Microscopic? YES; Appearance Urine Cloudy (Clear); Bilirubin Urine Negative (Negative); Blood Urine Negative (Negative); Color Urine Yellow (Yellow); Glucose Urine UA Negative (Negative); Ketones Urine Negative (Negative); Leukocyte Esterase Ur Trace LEU/UL (NEGATIVE); Nitrate Urine Negative (Negative); Protein Urine Negative (Negative); RBC Urine 0-2 /hpf (0-2); Specific Grav Ur 1.012 (1.001-1.035); Squamous Epithelial Cell Urine Rare /hpf (Few); Urobilinogen Urine Negative mg/dL (<2.0)
[2020-08-04 13:01] LABS: Alkaline Phosphatase 109 U/L (38-126); Anion Gap 7 mmol/L (8-16); Aspartate Amino Transferase 26 U/L (14-36); Bilirubin,Total 0.3 mg/dL (0.2-1.3); Blood Urea Nitrogen 23 mg/dL (7-17); Calcium 9.4 mg/dL (8.4-10.2); Carbon Dioxide 30 mmol/L (22-30); Chloride 105 mmol/L (98-107); Cholesterol 188 mg/dL (0-200); Estimated Glomerular Filt Rate > 60; Glucose 79 mg/dL (65-105); HDL Direct 73 mg/dL; Potassium 3.7 mmol/L (3.4-5.0); Sodium 142 mmol/L (137-145); Triglycerides 99 mg/dL (<150)
[2020-08-04 13:12] LABS: LDL Cholesterol Direct 71 mg/dL
[2020-08-04 13:42] LABS: Alanine Aminotransferase < 4 U/L (4-35)
== END 2020-08-04 12:20 | disposition home or self-care (01) ==
PROVIDERS: PCP Family Medicine; Visit Provider Family Medicine
DX: E78.5 Hyperlipidemia, unspecified (principal); R53.83 Other fatigue; I10 Essential (primary) hypertension; Z00.00 Encounter for general adult medical examination without abnormal findings; G47.00 Insomnia, unspecified; R26.81 Unsteadiness on feet
CPT/HCPCS: 36415; 80053; 80061; 81001; 84443; 85027; 85055

== ENCOUNTER 2020-09-01 07:40 | Outpatient (CLI) | payer MEDICARE, OTHER, SELFPAY ==
--- NOTE | ~2020-09-01 | MM_ITS ---
EXAMINATION: MM screening cristel BI w [facility] HISTORY: Screening mammogram TECHNIQUE: Craniocaudal and mediolateral oblique 3-D tomosynthesis images were obtained and synthetic 2-D images were generated. CAD analysis was submitted and interpreted. COMPARISON: No prior mammogram is available for comparison at this institution. BREAST PARENCHYMAL COMPOSITION: There are scattered areas of fibroglandular density. FINDINGS: There is no evidence of suspicious mass, calcification, or architectural distortion to sugg est malignancy in either breast. IMPRESSION: 1. No mammographic evidence of malignancy. 2. Recommend routine screening mammography in one year. BI-RADS Category 1: Negative Reviewed, dictated and finalized at location A.
--- NOTE | ~2020-09-01 | DEXA_ITS ---
Bone Density Report Name: Ruth Tejada Age: 74 Sex: Female Ethnicity: White Date of : 1945 Indication: postmenopausal; height loss; hysterectomy; Referring Provider: Wayne Tovar Study: Bone densitometry was performed. Exam Date: September 01, 2020 Accession number: [id number] Bone Density: Region BMD T-score Z-score Classification AP Spine (L1, L4) 1.000 -0.3 2.1 Normal Femoral Neck (Left) 0.612 -2.1 0.0 Osteopenia Total Hip (Left) 0.794 -1.2 0.6 Osteopenia Total Hip Bilateral Avg 0.760 -1.5 0.3 Osteopenia Femoral Neck (Right) 0.536 -2.8 -0.7 Osteoporosis Total Hip (Right) 0.725 -1.8 0.0 Osteopenia World Health Organization criteria for BMD impression classify patients as: Normal (T-score at or above -1.0), Osteopenia (T-score between -1.0 and -2.5), or Osteoporosis (T-score at or below -2.5). 10-year Fracture Risk: FRAX not reported because: Some T-score for Spine Total or Hip Total or Femoral Neck at or below -2.5 Clinical Information Provided by Patient: Has used the following medications: Vitamin D, Calcium Has the following medical conditions: Hysterectomy Patient maximum height was 65 Menopause Age: 49 No regular weight bearing exercise Drinks caffeinated beverages Onset of menses at age 13 Number of children 4 Impression: The patient has osteoporosis, based on the Right Femoral Neck T-score. Discussion: INCREASED RISK OF FRACTURE. BONE DENSITY IS UNDESIRABLY LOW AT ONE OR MORE SKELETAL SITES, CONSISTENT WITH POSTMENOPAUSAL OSTEOPOROSIS. This patient's lowest T-score meets the World Health Organization's (WHO) criteria for osteoporosis at one or more sites (T-score -2.5 or below). In untreated patients, the risk of osteoporotic fracture increases approximately two-fold for each 1.0 SD decrease in T-score. Low bone density is not the only risk factor for fracture; also consider factors such as patient's age, frailty or poor health, risk of falling, risk of injury, previous osteoporotic fracture, family history of osteoporosis, cigarette smoking, low body weight, etc. Not everyone with low bone mineral density has osteoporosis; osteomalacia and other metabolic bone disorders should also be considered. Patients who have osteoporosis should be evaluated for specific diseases and conditions (secondary causes) that may cause or contribute to bone loss. The [place] [employer]ocrin[employer] (AACE) and National Osteoporosis Foundation (NOF) recommend pharmacologic intervention for all postmenopausal women whose T-score is in this range. The patient should follow a healthful lifestyle (good nutrition with adequate calcium and vitamin D, and appropriate weight-bearing exercise). Follow-Up: Consider a repeat BMD and Vertebral Fracture Assessment (VFA) exam in 2 years or sooner if medically nec
== END 2020-09-01 07:41 | disposition home or self-care (01) ==
PROVIDERS: PCP Family Medicine; Visit Provider Family Medicine
DX: Z12.31 Encounter for screening mammogram for malignant neoplasm of breast (principal); Z78.0 Asymptomatic menopausal state; M85.89 Other specified disorders of bone density and structure, multiple sites; M81.0 Age-related osteoporosis without current pathological fracture
CPT/HCPCS: 77063; 77067; 77080

== ENCOUNTER 2020-09-04 11:04 | Outpatient (NON) | payer MEDICARE, OTHER, SELFPAY ==
[2020-09-04 11:34] LABS: Add Urine Microscopic? YES; Appearance Urine Cloudy (Clear); Bacteria Urine Trace /hpf; Bilirubin Urine Negative (Negative); Blood Urine Negative (Negative); Color Urine Yellow (Yellow); Glucose Urine UA Negative (Negative); Ketones Urine Trace mg/dL (Negative); Leukocyte Esterase Ur Negative LEU/UL (NEGATIVE); Mucus Urine Few /lpf; Nitrate Urine Negative (Negative); Protein Urine Negative (Negative); RBC Urine 0-2 /hpf (0-2); Squamous Epithelial Cell Urine Rare /hpf (Few); Urobilinogen Urine Negative mg/dL (<2.0)
== END 2020-09-04 11:05 | disposition home or self-care (01) ==
PROVIDERS: PCP Family Medicine; Visit Provider Nurse Practitioner Family
DX: N39.0 Urinary tract infection, site not specified (principal)
CPT/HCPCS: 81001; 87086; 87088

== ENCOUNTER 2020-09-16 10:10 | Outpatient (NON) | payer MEDICARE, OTHER, SELFPAY ==
[2020-09-16 10:52] LABS: Add Urine Microscopic? YES; Amorphous Sediment Urine Few; Appearance Urine Cloudy (Clear); Bilirubin Urine Negative (Negative); Blood Urine Negative (Negative); Color Urine Yellow (Yellow); Glucose Urine UA Negative (Negative); Ketones Urine Negative (Negative); Leukocyte Esterase Ur Negative LEU/UL (NEGATIVE); Mucus Urine Rare /lpf; Nitrate Urine Negative (Negative); Protein Urine Negative (Negative); Specific Grav Ur 1.014 (1.001-1.035); Squamous Epithelial Cell Urine Rare /hpf (Few); Urobilinogen Urine Negative mg/dL (<2.0); WBC Urine 0-3 /hpf (0-3)
== END 2020-09-16 10:11 | disposition home or self-care (01) ==
LOC: ANHLAB 10:12
PROVIDERS: PCP Family Medicine; Visit Provider Nurse Practitioner Family
DX: N39.0 Urinary tract infection, site not specified (principal)
CPT/HCPCS: 81001; 87086

== ENCOUNTER 2020-10-17 09:26 | Outpatient (NON) | payer MEDICARE, OTHER, SELFPAY | END 2020-10-17 09:27 | disposition home or self-care (01) | PROVIDERS: PCP Family Medicine; Visit Provider Family Medicine | DX: N39.0 Urinary tract infection, site not specified (principal) | CPT/HCPCS: 87086 ==

== ENCOUNTER → 2020-11-03 14:09 | Outpatient (REF) | payer MEDICARE, OTHER, SELFPAY | LOC: ANHLAB 14:09 | PROVIDERS: PCP Family Medicine; Visit Provider Nurse Practitioner | DX: D18.01 Hemangioma of skin and subcutaneous tissue (principal); D36.10 Benign neoplasm of peripheral nerves and autonomic nervous system, unspecified | CPT/HCPCS: 88305 ==

== ENCOUNTER 2020-11-25 08:23 | Inpatient (IN) | payer MEDICARE, OTHER, SELFPAY ==
[2020-11-25] VITALS (7 sets, daily range): BP systolic 114–171; BP diastolic 84–105; PULSE 69–82; RESP 16–18; TEMP 36.8–37; O2SAT 97–100; BMI 29.0
--- NOTE | ~2020-11-25 | XR_ITS ---
EXAMINATION: XR chest 2V DATE: 11/25/2020 09:31 INDICATION: Weakness. Fall. Hypertension. TECHNIQUE: Frontal and lateral views of the chest were obtained. COMPARISON: Chest 2 views 06/16/2019 FINDINGS: There is no pneumonia, pleural effusion, or pneumothorax. Cardiomegaly is noted. There are multiple old healed right rib fractures. Surgical clips in the right upper quadrant are likely from c holecystectomy. IMPRESSION: 1. Cardiomegaly. Reviewed, dictated and finalized at location A. IMPRESSION: 1. Cardiomegaly.
--- NOTE | ~2020-11-25 | XR_ITS ---
XR lumbar spine 2-3V DATE: 11/25/2020 12:45 INDICATION: Ground-level fall. Low back pain TECHNIQUE: AP, lateral, coned lateral lumbosacral views COMPARISON: 07/06/2020 MRI lumbar spine 06/01/2020 lumbar spine FINDINGS: There is diffuse osteopenia. There is moderate rotatory dextroscoliosis of the lower thoracic and lumbar spine. There is degenerative spurring of the lower thoracic spine. There is severe degenerative disc disease throughout the lumbar and lumbosacral spine. No fracture or bone destruction is evident. The lumbar pedicles appear to be intact. The sacroiliac joints appear normal. Status post cholecystectomy. IMPRESSION: Moderate rotatory dextroscoliosis and severe degenerative disc disease of the lumbar spin e; no significant change since 06/01/2020 Osteopenia Reviewed, dictated and finalized at location A. IMPRESSION: Moderate rotatory dextroscoliosis and severe degenerative disc dise ase of the lumbar spine; no significant change since 06/01/2020 Osteopenia
--- NOTE | ~2020-11-25 | CT_ITS ---
EXAMINATION: CT brain wo con DATE: 11/25/2020 09:23 INDICATION: Weakness. Frequent falls. TECHNIQUE: Computed tomography (CT) of the head was performed without intravenous contrast. The mA wa s adjusted according to patient size. Iterative reconstruction technique was employed. The dose-lengt h product was 605.33 mGy-cm. COMPARISON: Head CT 06/16/2019 FINDINGS: There are scattered areas of low attenuation in the cerebral white matter, which is within normal limits for the patient's age. There is no intracranial hemorrhage, acute infarction, or abnorm al intracranial mass lesion. The ventricles are normal in size. There is mild mucosal thickening in t he ethmoid sinuses. The mastoid air cells are normal. The orbits are normal. IMPRESSION: 1. Normal aging brain. Reviewed, dictated and finalized at location A. IMPRESSION: 1. Normal aging brain.
--- NOTE | ~2020-11-25 | XR_ITS ---
XR knee LT min 4V DATE: 11/25/2020 12:45 INDICATION: Ground-level fall. Left leg pain, knee pain TECHNIQUE: 4 views including crosstable lateral COMPARISON: left knee FINDINGS: There is diffuse osteopenia. No fracture or dislocation or joint effusion, periosteal reaction or bone destruction, radiopaque int ra-articular loose body or chondrocalcinosis is noted. Joint spaces are relatively preserved. There are tiny marginal osteophytes. IMPRESSION: Osteopenia No fracture or dislocation or joint effusion Slight osteoarthritis Reviewed, dictated and finalized at location A.
--- NOTE | ~2020-11-25 | XR_ITS ---
EXAMINATION: XR hip LT 2V w AP pelvis DATE: 11/25/2020 12:45 INDICATION: Ground-level fall with left leg pain with weightbearing TECHNIQUE: Anteroposterior view of the pelvis and anteroposterior and frog-leg lateral views of the l eft hip were obtained. COMPARISON: 08/27/2019 FINDINGS: Normal alignment at the bilateral hips. No fractures. Mild bilateral hip and sacral iliac osteoarthri tis. Moderate to severe lower lumbar spondylosis. IMPRESSION: 1. Mild bilateral hip and sacral iliac osteoarthritis. No acute osseous abnormality. 2. Moderate to severe lower lumbar spondylosis. Reviewed, dictated and finalized at location B. IMPRESSION: 1. Mild bilateral hip and sacral iliac osteoarthritis. No acute osseous abnorma lity. 2. Moderate to severe lower lumbar spondylosis.
--- NOTE | 2020-11-25 08:43 | ECG_ITS ---
Measurements Intervals [place] Rate: 72 P: 5 AK: 153 QRS: -27 QRSD: 113 T: -8 QT: 376 QTc: 412 Interpretive Statements SINUS RHYTHM LEFT ATRIAL ENLARGEMENT INCOMPLETE RIGHT BUNDLE BRANCH BLOCK POSSIBLE LEFT VENTRICULAR HYPERTROPHY BORDERLINE R WAVE PROGRESSION, ANTERIOR LEADS BORDERLINE ST-T WAVE ABNORMALITY- ANTEROLAT/INF LEADS BASELINE ARTIFACT- I, II, III, AVR, AVF, V1, V3-V6 BORDERLINE ECG Electronically Signed On 11-25-2020 8:57:15 CDT by Chaparro Ramos D.O.
--- NOTE | 2020-11-25 08:52 | ED.WEAKNESS ---
HPI - Weakness General Chief complaint: Weakness Stated complaint: WEAKNESS Time Seen by Provider: 11/25/20 08:32 Source: patient Mode of arrival: EMS Limitations: dementia History of Present Illness HPI Narrative: THis is a 74 year old female with history of PArkinson's who presents for evaluation of frequent falls. Patient's family is at bedside. It is reported that patient has fallen 4 times in the week and she fell twice this morning. This morning patient was getting out bed when she fell. Patient's daughter was able to catch her and they were able to get patient up. It is reported that she was able to walk 4 -5 feet before falling again. Patient is unsure of why she is falling . She denies hitting her head. She reports sore of her left hand from falling on Monday but she denies pain. She denies chest pain, cough, sob, nausea, vomiting, abdominal pain, leg pain, numbness or tingling. Related Data Home Medications Medication Instructions Recorded Confirmed lurasidone 20 mg tablet 20 mg PO QPM 10/28/20 10/28/20 Nuplazid 34 mg 11/25/20 rasagiline 1 mg PO DAILY 11/25/20 sertraline 50 mg PO DAILY 11/25/20 trazodone 150 mg PO .QHS PRN 11/25/20 Allergies Allergy/AdvReac Type Severity Reaction Status Date / Time amoxicillin Allergy Unknown ,Unknown Verified 11/03/20 14:07 Review of Systems Review of Systems: All systems reviewed & are unremarkable except as noted in HPI and below PMFSH Past Medical History Medical History (Updated 11/25/20 @ 14:57 by Kelin Rm PA-C) Anxiety Cardiomegaly Essential (primary) hypertension Gallstone pancreatitis Parkinson's disease Peripheral vascular disease Pulmonary embolism Right leg DVT Surgical History Surgical History (Updated 11/25/20 @ 14:54 by Kelin Rm PA-C) History of cholecystectomy History of hysterectomy (1995) History of local excision of skin lesion Hemangioma from the less chest. 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 Lives in [place] with her . Nonsmoker. No alcohol or illicit substance abuse. Surrogate decision maker: Arian Tejada. Code status: Full code. Exam Const: General: no acute distress and alert Orientation/consciousness: patient oriented x3 Eyes: Pupils: Equal, round and reactive pupils present EOM: EOMs intact bilaterally Chest: Chest palpation & inspection: normal inspection of the chest Resp: Effort & Inspection: normal respiratory effort and no retractions Auscultation: clear to auscultation bilaterally Cardio: Rate: regular rate Rhythm: regular rhythm Heart sounds: Murmur heart sound present systolic GI: GI Palp: Yes Soft to palpation, No Tenderness to palpation present (GI) and No Guarding due to palpation present (GI) Auscultation: normal bowel sounds Skin: General skin exam: normal color Other: left hand with scab at 4th mcp Neuro: General: patient oriented x3, moves all extremities and CN's II-XI intact bilaterally Extrem: General: normal to inspection and no pedal edema Other: FROM of all extremities. able to hold legs up off bed. Psych: Mental Status: mental status grossly normal Affect: normal affect Course Reevaluation(s) Reevaluation #1: Nursing staff attempted to ambulate patient but she does not seem to want to put full weight on legs. She reports pain to her left knee. Date: 11/25/20 Time: 11:34 Reevaluation #2: I discussed with family no acute fracture found. They are agreeable to admission for observation given inability to ambulate Date: 11/25/20 Time: 13:44 Consultations
[2020-11-25 09:24] LABS: Add Urine Microscopic? YES; Appearance Urine Clear (Clear); Bilirubin Urine Negative (Negative); Blood Urine Negative (Negative); Budding Yeast Urine Present /hpf; Color Urine Yellow (Yellow); Glucose Urine UA Negative (Negative); Ketones Urine Negative (Negative); Leukocyte Esterase Ur Negative LEU/UL (Negative); Nitrate Urine Negative (Negative); Protein Urine Negative (Negative); Specific Grav Ur 1.015 (1.001-1.035); Squamous Epithelial Cell Urine Occasional /hpf (Few); Urobilinogen Urine Negative mg/dL (<2.0)
[2020-11-25 10:05] LABS: Albumin Level 4.3 g/dL (3.5-5.1); Alkaline Phosphatase 81 U/L (38-126); Anion Gap 6 mmol/L (8-16); Aspartate Amino Transferase 22 U/L (14-36); Bilirubin,Total 0.5 mg/dL (0.2-1.3); Blood Urea Nitrogen 27 mg/dL (7-17); Calcium 9.8 mg/dL (8.4-10.2); Carbon Dioxide 30 mmol/L (22-30); Chloride 104 mmol/L (98-107); Estimated CRCL calculation 57 ml/min; Estimated Glomerular Filt Rate > 60; Glucose 101 mg/dL (65-110); Sodium 140 mmol/L (137-145)
[2020-11-25 10:08] LABS: Basophils Percent Auto 0.2 % (0.2-1.2); Eosinophils Absolute Auto 0.1 K/mm3 (0-0.3); Eosinophils Percent Auto 1.1 % (0-4.4); Hematocrit 38.2 % (37.0-47.0); Hemoglobin 13.2 g/dL (12.0-15.0); Immature Granulocyte Absolute 0.02 K/mm3 (0.00-0.031); Immature Granulocyte Percent A 0.3 % (0-0.5); Immature Platelet Fraction Pct 2.1 % (0.9-11.2); Lymphocytes Percent Auto 17.2 % (18.3-44.2); Mean Corpuscular HGB Conc 34.6 g/dl (32-36); Mean Corpuscular Hemoglobin 33.3 pg (26-34); Mean Corpuscular Volume 96.5 fl (80-100); Mean Platelet Volume 9.2 fl (7.4-10.4); Monocytes Absolute Auto 0.4 K/mm3 (0.1-0.6); Monocytes Percent Auto 5.6 % (2.6-8.5); Neutrophils Absolute Auto 4.8 K/mm3 (1.3-6.7); Neutrophils Percent Auto 75.6 % (45.5-73.1); Platelet Count Result 159 k/mm3 (150-375); Red Blood Count 3.96 M/mm3 (4.2-5.4); Red Cell Distribution Width 12.9 % (11.5-14.5); White Blood Count 6.4 K/mm3 (4.5-10.0)
[2020-11-25] MEDS: CARBIDOPA/LEVODOPA 25/100 MG CR TABLET 1 TABLET PO ×2 (10:26→10:27)
[2020-11-25] MEDS: FUROSEMIDE 20 MG TABLET PO (10:27)
[2020-11-25] MEDS: lisinopriL 10 MG TABLET 30 MG PO (10:27)
[2020-11-25 10:46] LABS: Alanine Aminotransferase < 6 U/L (4-35)
--- NOTE | 2020-11-25 11:30 | PC.NURSE ---
this patient was unable to stand safely on side of bed with 2 RN assist. EDP made aware. pt reporting L knee pain.
--- NOTE | 2020-11-25 15:15 | PCCCNOTE ---
Spoke with pt and her Arian about discharge plans. did most of answering questions. Pt prefers to go home but states she has had multiple falls and he was unable to get her up himself. Patient agrees. Pt has been at [facility] in the past for rehab and they are the husbands fist choice with [facility] being the second choice. Pt has had both Moderna Covid immunizations. Faxed referral to [facility] and spoke to Sherry who states she will review and call back. If they accept her they will try to use the Covid waiver. Arian's cell phone number is [phone].
--- NOTE | 2020-11-25 15:45 | PM.IMHP ---
H&P: HPI History of Present Illness Date/Time: 11/25/20 15:45 Chief Complaint: Weakness and falls. Narrative: This is a 74-year-old female with Parkinson and hypertension who presented to the emergency department earlier today via EMS from home for evaluation of weakness and falls. She typically ambulates with a walker and is able to get around pretty well though over the past week she has had 4 falls, 2 of which were this morning. She is not exactly certain as to why she has been falling but she thinks maybe her legs are more weak than usual. Workup in the emergency department was relatively unremarkable though she is being admitted for PT/OT consult as she likely needs rehab before returning home as she has demonstrated that she is not safe at home at this time given recurrent falls. She denies head trauma and loss of consciousness in the falls. She also denies antecedent symptoms prior to the fall. She denies any significant injuries in the fall but she does have some abrasions on her left forearm and the dorsum of the left hand from her fall on Monday. She has not had fever, chills, or sweats. No recent cold or flu symptoms. She denies sick contacts. No chest pain, pleuritic pain, palpitations, cough, shortness of breath, nausea, vomiting, diarrhea, or dysuria. She denies saddle anesthesia, focal weakness, and incontinence. Review of Systems Review of Systems: Twelve systems were reviewed with pertinent positives and negatives as per HPI. Except as documented, all other systems were reviewed and are negative. [facility] Past Medical History Medical History (Updated 11/25/20 @ 21:11 by Kelin Rm PA-C) Anxiety Cardiomegaly Echocardiogram in May 2019 showed a moderately enlarged left ventricular chamber with normal systolic function and an EF estimated at 60 to 65% with grade 1 diastolic dysfunction. Essential (primary) hypertension Gallstone pancreatitis Parkinson's disease Peripheral vascular disease Pulmonary embolism Right leg DVT Surgical History Surgical History (Updated 11/25/20 @ 14:54 by Kelin Rm PA-C) History of cholecystectomy History of hysterectomy (1995) History of local excision of skin lesion Hemangioma from the less chest. 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 Lives in [place] with her . Nonsmoker. No alcohol or illicit substance abuse. Surrogate decision maker: Arian Tejada. Code status: Full code. Meds Home Medications and Allergies Home Medications Medication Instructions Recorded Confirmed Type aspirin 81 mg PO QAM 30 Days #30 tablet 06/18/19 11/25/20 Rx carbidopa 25 mg-levodopa 100 mg See Rx Instructions .ROUTE 06/11/20 11/25/20 Rx tablet .COMPLEX #720 tablet lisinopril 30 mg tablet See Rx Instructions .ROUTE 07/28/20 11/25/20 Rx .COMPLEX #90 tablet alendronate 70 mg tablet 70 mg PO WEEKLY #12 tablet 09/24/20 11/25/20 Rx lurasidone 20 mg tablet 20 mg PO QPM 10/28/20 11/25/20 History furosemide 20 mg tablet 20 mg PO QAM #90 tablet 11/03/20 11/25/20 Rx Nuplazid 34 mg PO HS 11/25/20 11/25/20 History amitriptyline 50 mg PO HS 11/25/20 11/25/20 History carbidopa-levodopa 1 tablet PO HS 11/25/20 11/25/20 History gabapentin 100 mg PO TID 11/25/20 11/25/20 History quetiapine 50 mg PO HS 11/25/20 11/25/20 History rasagiline 1 mg PO DAILY 11/25/20 11/25/20 History sertraline 75 mg PO DAILY 11/25/20 11/25/20 History tizanidine See Rx Instructions .ROUTE 11/25/20 11/25/20 History .COMPLEX PRN trazodone 100 mg PO HS 11/25/20 11/25/20 History Allergies Allergy/AdvReac Type Severity Reacti
--- NOTE | 2020-11-25 16:36 | PCCCNOTE ---
Sherry from [facility] called and declined pt. Faxed demographic sheet and H&P to [facility]. Called [facility] and spoke to Nena who states she will review and will call back.
--- NOTE | 2020-11-25 17:05 | ADMGEN ---
This patient, Ruth Tejada, was admitted to Medical Room 348-01. Patient/family oriented to hospital policies and general routines including ID bracelet, bed and alarms, visiting hours, pain management, procedures, bathroom and other care routines, personal items, smoking policy, room service/diet, and visiting hours. Information on how to activate the Rapid Response Team has been discussed. Patient/Family are encouraged to report perceived risks to care and to ask questions if they do not understand what they are told or what they should do.
[2020-11-25] MEDS: polyethylene glycoL 3350 17 GM POWD.PACK PO (21:31)
[2020-11-25] MEDS: CARBIDOPA/LEVODOPA 25/100 MG CR TABLET 2 TABLET PO (22:12)
[2020-11-25] MEDS: AMITRIPTYLINE HCL 25 MG TABLET 50 MG PO (22:12)
[2020-11-25] MEDS: traZODone HCL 50 MG TABLET 100 MG PO (22:12)
[2020-11-25] MEDS: QUEtiapine FUMARATE 25 MG TABLET 50 MG PO (22:13)
[2020-11-26] VITALS (15 sets, daily range): BP systolic 98–165; BP diastolic 49–113; PULSE 58–100; RESP 17–18; TEMP 35.8–36.8; O2SAT 94–99; BMI 10.0
[2020-11-26 05:55] LABS: Basophils Percent Auto 0.2 % (0.2-1.2); Eosinophils Percent Auto 0.8 % (0-4.4); Hematocrit 36.8 % (37.0-47.0); Hemoglobin 12.6 g/dL (12.0-15.0); Immature Granulocyte Absolute 0.02 K/mm3 (0.00-0.031); Immature Granulocyte Percent A 0.4 % (0-0.5); Lymphocytes Absolute Auto 1.32 K/mm3 (0.9-3.2); Mean Corpuscular HGB Conc 34.2 g/dl (32-36); Mean Corpuscular Hemoglobin 32.9 pg (26-34); Mean Corpuscular Volume 96.1 fl (80-100); Mean Platelet Volume 9.2 fl (7.4-10.4); Monocytes Absolute Auto 0.3 K/mm3 (0.1-0.6); Monocytes Percent Auto 6.1 % (2.6-8.5); Neutrophils Absolute Auto 3.4 K/mm3 (1.3-6.7); Neutrophils Percent Auto 66.5 % (45.5-73.1); Platelet Count Result 142 k/mm3 (150-375); Red Blood Count 3.83 M/mm3 (4.2-5.4); Red Cell Distribution Width 12.8 % (11.5-14.5); White Blood Count 5.1 K/mm3 (4.5-10.0)
[2020-11-26 06:09] LABS: Albumin Level 3.9 g/dL (3.5-5.1); Alkaline Phosphatase 66 U/L (38-126); Anion Gap 5 mmol/L (8-16); Aspartate Amino Transferase 22 U/L (14-36); Bilirubin,Total 0.6 mg/dL (0.2-1.3); Blood Urea Nitrogen 26 mg/dL (7-17); Calcium 8.5 mg/dL (8.4-10.2); Carbon Dioxide 30 mmol/L (22-30); Chloride 104 mmol/L (98-107); Creatine Kinase 39 U/L (30-135); Estimated CRCL calculation 62 ml/min; Estimated Glomerular Filt Rate > 60; Glucose 106 mg/dL (65-110); Potassium 3.6 mmol/L (3.4-5.0); Sodium 139 mmol/L (137-145)
[2020-11-26 06:11] LABS: Alanine Aminotransferase < 4 U/L (4-35)
[2020-11-26] MEDS: CARBIDOPA/LEVODOPA 25/100 MG TABLET 2 TABLET BY MOUTH ×5 (08:29→21:00)
[2020-11-26] MEDS: ASPIRIN 81 MG ENTERIC TABLET PO (08:55)
[2020-11-26] MEDS: GABAPENTIN 100 MG CAPSULE PO ×3 (08:56→18:16)
[2020-11-26] MEDS: lisinopriL 10 MG TABLET BY MOUTH (08:56)
[2020-11-26] MEDS: FUROSEMIDE 20 MG TABLET PO (08:57)
[2020-11-26] MEDS: SERTRALINE HCL 25 MG TABLET 75 MG PO (10:54)
--- NOTE | 2020-11-26 13:21 | PCSTNOTE ---
Please refer to the Bedside Swallow Evaluation in the EMR. Please note, silent aspiration cannot be ruled out at bedside.
--- NOTE | 2020-11-26 14:44 | PM.IMPN ---
Progress Note: A&P Assessment and Plan (1) Frequent falls: Code(s): R29.6 - Repeated falls Status: Acute Assessment and Plan: pt reported falling 4x's in last week Head CT showed a normal aging brain xray of LS with no significant change since 06/01/2020 ECHO EF 60-65%, grade I diastolic dysfunction, mild aortic valve sclerosis PT/OT Orthostatic VS pending Fall precautions SNF at d/c (2) Generalized weakness: Code(s): R53.1 - Weakness Status: Acute Assessment and Plan: Treatment as above (3) Parkinson's disease: Code(s): G20 - Parkinson's disease Status: Chronic Assessment and Plan: Continue home meds (4) Essential (primary) hypertension: Code(s): I10 - Essential (primary) hypertension Status: Acute Assessment and Plan: Continue home regimen with lisinopril and Lasix Monitor (5) Anxiety: Code(s): F41.9 - Anxiety disorder, unspecified Status: Chronic Assessment and Plan: Continue home meds Subjective Date/time seen: 11/26/20 14:44 Interval history: pt seen and evaluated; labs, VS, and diagnostic reports reviewed; no acute events overnight; she tells me she has been falling quite a bit; she complains of increased weakness BLE Review of Systems Review of Systems: All systems reviewed & are unremarkable except as noted in HPI and below Exam Const: General: no acute distress, alert and awake Orientation/consciousness: patient oriented x3 HENMT: Head: normocephalic and atraumatic Ears: hearing grossly normal bilaterally and external ears normal Face and sinus: face symmetric Mouth: Yes Normal oral and palatal mucosa present Eyes: Pupils: Equal, round and reactive pupils present EOM: EOMs intact bilaterally Neck: Neck: full ROM, trachea midline and no JVD Chest: Chest palpation & inspection: normal inspection of the chest Resp: Effort & Inspection: normal respiratory effort Auscultation: clear to auscultation bilaterally Cardio: Jugular venous distension: no JVD Rate: regular rate Rhythm: regular rhythm Heart sounds: S1 normal heart sound present and S2 normal heart sound present GI: Inspection: normal to inspection GI Palp: Yes Soft to palpation Percussion: Yes normal to percussion Auscultation: normal bowel sounds : General: Yes no CVA tenderness Back/Spine/Pelvis: Back: no CVA tenderness Skin: General skin exam: normal color Rashes: no rashes Neuro: General: patient oriented x3 and CN's II-XI intact bilaterally Cranial nerves: Yes Equal, round and reactive pupils present Speech: normal speech Psych: Appearance: grossly normal Affect: normal affect Judgement: Good judgement present (Psych) Objective Data Vital Signs Vital Signs: Vital Signs - 24 hr 11/25/20 15:31 11/25/20 16:34 11/25/20 18:10 Temperature Pulse Rate 71 82 69 Respiratory Rate 16 16 Blood Pressure 114/84 Pulse Oximetry 100 100 11/25/20 19:28 11/25/20 20:00 11/25/20 20:36 Temperature 37.0 C Pulse Rate 75 76 75 Respiratory Rate 18 18 Blood Pressure 157/87 H Pulse Oximetry 98 98 11/26/20 00:00 11/26/20 04:00 11/26/20 04:58 Temperature 36.4 C Pulse Rate 100 71 70 Respiratory Rate 17 Blood Pressure 150/88 H Pulse Oximetry 98 11/26/20 08:00 11/26/20 11:03 11/26/20 11:04 Temperature Pulse Rate 77 Respiratory Rate Blood Pressure 139/102 H 137/113 H Pulse Oximetry Intake/Output Intake/Output: Intake & Output 11/23/20 11/24/20 11/25/20 11/26/20 23:59 23:59 23:59 23:59 Intake Total 600 Output Total 350 Balance 250 Meds/Results Medications: Active Medications Generic Name Dose Route Start Last Admin Trade Name Freq PRN Reason Stop Dose Admin Acetaminophen 650 mg 11/25/20 21:22 Acetaminophen 325 Mg Tablet PO Q6H PRN Mild Pain (1-3) or Fever Amitriptyline HCl 50 mg 11/25/20 21:00 11/25/20 22:12 Amitriptyline Hcl 25
[2020-11-26] MEDS: AMITRIPTYLINE HCL 25 MG TABLET 50 MG PO (21:02)
[2020-11-26] MEDS: CARBIDOPA/LEVODOPA 25/100 MG CR TABLET 2 TABLET PO (21:02)
[2020-11-26] MEDS: QUEtiapine FUMARATE 25 MG TABLET 50 MG PO (21:02)
[2020-11-26] MEDS: traZODone HCL 50 MG TABLET 100 MG PO (21:02)
--- NOTE | 2020-11-26 21:21 | ECHO_ITS ---
Patient Info Name: Ruth Tejada Age: 74 years : 1945 Gender: Female Ht: 65 in Wt: 174 lbs BSA: 1.92 m2 HR: 73 bpm BP: 150 / 88 mmHg Technical Quality: Fair Exam Date: 11/26/2020 10:56 AM Exam Location: [facility] Pulmonary Exam Room: [facility] Patient Status: Inpatient Admit Date: 11/25/2020 Staff Ordering Physician: Kelin Rm PA-C After School Program Coordinator: Neli Brown RDCS Attending Provider: Michael Bo MD Referring Physician: Sujey PETERSON; Exam Type: CA echo doppler color flow Study Info Indications - MURMUR HTN Complete two-dimensional, color flow and Doppler transthoracic echocardiogram is performed. Summary 1. Complete two-dimensional, color flow and Doppler transthoracic echocardiogram is performed. 2. Left ventricular chamber dimension is normal. 3. Left ventricular systolic function is normal, estimated at 60-65%. 4. There is mildly increased left ventricular wall thickness. 5. The left ventricular diastolic function is grade I diastolic dysfunction. 6. E/e' 8 is minimally elevated. 7. Global longitudinal strain is normal at -17.5%. 8. Left atrial chamber dimension is mildly enlarged. 9. There is mild aortic valve sclerosis. 10. The mitral valve has mildly calcified annulus. 11. There is trace tricuspid valve regurgitation. 12. No pulmonary hypertension, estimated pulmonary arterial systolic pressure is 28 mmHg. Left Ventricle E/e' 8 is minimally elevated. Global longitudinal strain is normal at -17.5%. Left ventricular chamber dimension is normal. Left ventricular systolic function is normal, estimated at 60-65%. There is mildly increased left ventricular wall thickness. The left ventricular diastolic function is grade I diastolic dysfunction. Right Ventricle Right ventricular chamber dimension is normal. Right ventricular systolic function is normal. Left Atria Left atrial chamber dimension is mildly enlarged. Right Atria Right atrial chamber dimension is normal. Aortic Valve The aortic valve is trileaflet. There is mild aortic valve sclerosis. There is no aortic valve stenosis. There is no aortic valve regurgitation. Pulmonic Valve There is no pulmonic regurgitation. Mitral Valve The mitral valve has mildly calcified annulus. There is no mitral valve stenosis. There is no mitral valve regurgitation. Tricuspid Valve There is trace tricuspid valve regurgitation. No pulmonary hypertension, estimated pulmonary arterial systolic pressure is 28 mmHg. Pericardium/Pleural There is no pericardial effusion. Inferior Vena Cava Normal inferior vena cava with >50% collapse upon inspiration consistent with normal right atrial pressure, 5 mmHg. Aorta The aortic root size at the sinus of Valsalva is normal. Left Ventricular Outflow Tract Name Value Normal LVOT 2D LVOT Diameter 2.0 cm LVOT Doppler LVOT Peak Gradient 4 mmHg LVOT Mean Gradient 3 mmHg LVOT VTI 22 cm LVOT VTI/AV VTI Ratio 1.0 LVOT Stroke Volume
[2020-11-27] VITALS: PULSE 66
[2020-11-27 03:57] VITALS: BP 130/83; PULSE 63; RESP 17; TEMP 36.4; O2SAT 97
[2020-11-27 04:00] VITALS: PULSE 64
[2020-11-27] MEDS: ASPIRIN 81 MG ENTERIC TABLET PO (07:23)
[2020-11-27] MEDS: GABAPENTIN 100 MG CAPSULE PO (07:23)
[2020-11-27] MEDS: MIDODRINE HCL 2.5 MG TABLET 5 MG PO (07:23)
[2020-11-27] MEDS: CARBIDOPA/LEVODOPA 25/100 MG TABLET 2 TABLET BY MOUTH ×2 (07:24→11:02)
[2020-11-27] MEDS: FUROSEMIDE 20 MG TABLET PO (07:24)
[2020-11-27] MEDS: lisinopriL 10 MG TABLET BY MOUTH (07:31)
[2020-11-27 07:39] VITALS: BP 136/71; PULSE 63
[2020-11-27 08:00] VITALS: PULSE 74
--- NOTE | 2020-11-27 10:20 | PM.DS ---
DS: Admitting Diagnosis Discharge Date 11/27/2020 Admitting Diagnosis Frequent falls; Generalized weakness DS: Discharge Diagnosis Discharge Diagnosis (1) Frequent falls: Code(s): R29.6 - Repeated falls Status: Acute Assessment and Plan: pt reported falling 4x's in last week Head CT showed a normal aging brain xray of LS with no significant change since 06/01/2020 ECHO EF 60-65%, grade I diastolic dysfunction, mild aortic valve sclerosis PT/OT Orthostatic VS pending Fall precautions SNF at d/c (2) Generalized weakness: Code(s): R53.1 - Weakness Status: Acute Assessment and Plan: Treatment as above (3) Parkinson's disease: Code(s): G20 - Parkinson's disease Status: Chronic Assessment and Plan: Continue home meds (4) Essential (primary) hypertension: Code(s): I10 - Essential (primary) hypertension Status: Acute Assessment and Plan: Continue home regimen with lisinopril and Lasix Monitor (5) Anxiety: Code(s): F41.9 - Anxiety disorder, unspecified Status: Chronic Assessment and Plan: Continue home meds DS: Summary Hospital Course Hospital Course: This is a 74-year-old female with Parkinson and hypertension who presented to the emergency department earlier today via EMS from home for evaluation of weakness and falls. She typically ambulates with a walker and is able to get around pretty well though over the past week she has had 4 falls, 2 of which were this morning. She is not exactly certain as to why she has been falling but she thinks maybe her legs are more weak than usual. Workup in the emergency department was relatively unremarkable though she is being admitted for PT/OT consult as she likely needs rehab before returning home as she has demonstrated that she is not safe at home at this time given recurrent falls. She denied head trauma and loss of consciousness in the falls. She also denied antecedent symptoms prior to the fall. She denied any significant injuries in the fall but she does have some abrasions on her left forearm and the dorsum of the left hand from her fall on Monday. She has not had fever, chills, or sweats. No recent cold or flu symptoms. She denied sick contacts. No chest pain, pleuritic pain, palpitations, cough, shortness of breath, nausea, vomiting, diarrhea, or dysuria. She denied saddle anesthesia, focal weakness, and incontinence. She was found with orthostatic hypotension which have precipitated the falls. Echocardiogram showed grade I diastolic dysfunction and mild aortic valve sclerosis. She was seen by neurology while inpatient. PT and OT consulted were consulted and the patient requires moderate assistance with activity. She is hemodynamically stable and will discharge to SNF for PT and OT. Her plan is to eventually return home. She has been advised to follow up with her PCP after discharge. Time Spent with Patient Time attestation: Total time spent providing and/or coordinating discharge services: Time spent: Greater than 30 minutes Exam Const: General: no acute distress, alert and awake Orientation/consciousness: patient oriented x3 HENMT: Head: normocephalic Ears: hearing grossly normal bilaterally Face and sinus: face symmetric Mouth: Yes Normal oral and palatal mucosa present Eyes: EOM: EOMs intact bilaterally Neck: Neck: full ROM, trachea midline and no JVD Resp: Effort & Inspection: normal respiratory effort Auscultation: clear to auscultation bilaterally Cardio: Jugular venous distension: no JVD Rate: regular rate Rhythm: regular rhythm Heart sounds: S1 normal heart sound present and S2 normal heart sound present GI: Inspection: normal to inspection Auscultation: normal bowel sounds : General: Yes no CVA tenderness Back/Spine/Pelvis: Back: no CVA tenderness Skin: General skin exam: normal color Rashes: no rashes Neuro: General: patient oriented x3 Speech: nor
--- NOTE | 2020-11-27 10:38 | PC.NURSE ---
Spoke to Dr To and he is ok with the patient being discharged without the midodrine ordered.
--- NOTE | 2020-11-27 10:41 | WPDNEURCNPN ---
Consult date: 11/27/20 Time Seen: 09:30 HPI: Ruth Tejada is a 74 year old female admitted to the hospital for the complaints of generalized weakness with falls. Patient Flick of 1. Disease 2. Hypertension. Typically ambulates with a walker and able to get around pretty well to over the past week he has had 4 falls 2 of them were this morning the day of admission he was unable to pinpoint what exactly happened she gave no history of any an 80 during the fall, she does have ongoing history of 1. Thing is I 2. Hypertension 3. Parkinson's disease 4. Peripheral vascular disease 5. History of pulmonary rembolism and right lower extremity DVT and 6. Cardiomegaly documented by the echocardiogram as well. In the past she has undergone cholecystectomy and hysterectomy and total r knee replacement Review of Systems Review of Systems: All systems reviewed & are unremarkable except as noted in HPI and below PMFSH Past Medical History Medical History Anxiety Cardiomegaly Echocardiogram in May 2019 showed a moderately enlarged left ventricular chamber with normal systolic function and an EF estimated at 60 to 65% with grade 1 diastolic dysfunction. Essential (primary) hypertension Gallstone pancreatitis Parkinson's disease Peripheral vascular disease Pulmonary embolism Right leg DVT Surgical History Surgical History History of cholecystectomy History of hysterectomy (1995) History of local excision of skin lesion Hemangioma from the less chest. 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 Lives in [place] with her . Nonsmoker. No alcohol or illicit substance abuse. Surrogate decision maker: Arian Tejada. Code status: Full code. Meds Home Medications and Allergies Home Medications Medication Instructions Recorded Confirmed Type aspirin 81 mg PO QAM 30 Days #30 tablet 06/18/19 11/25/20 Rx carbidopa 25 mg-levodopa 100 mg See Rx Instructions .ROUTE 06/11/20 11/25/20 Rx tablet .COMPLEX #720 tablet lisinopril 30 mg tablet See Rx Instructions .ROUTE 07/28/20 11/25/20 Rx .COMPLEX #90 tablet alendronate 70 mg tablet 70 mg PO WEEKLY #12 tablet 09/24/20 11/25/20 Rx lurasidone 20 mg tablet 20 mg PO QPM 10/28/20 11/25/20 History furosemide 20 mg tablet 20 mg PO QAM #90 tablet 11/03/20 11/25/20 Rx Nuplazid 34 mg PO HS 11/25/20 11/25/20 History amitriptyline 50 mg PO HS 11/25/20 11/25/20 History carbidopa-levodopa 1 tablet PO HS 11/25/20 11/25/20 History gabapentin 100 mg PO TID 11/25/20 11/25/20 History quetiapine 50 mg PO HS 11/25/20 11/25/20 History rasagiline 1 mg PO DAILY 11/25/20 11/25/20 History sertraline 75 mg PO DAILY 11/25/20 11/25/20 History tizanidine See Rx Instructions .ROUTE 11/25/20 11/25/20 History .COMPLEX PRN trazodone 100 mg PO HS 11/25/20 11/25/20 History Allergies Allergy/AdvReac Type Severity Reaction Status Date / Time amoxicillin Allergy Unknown ,Unknown Verified 11/25/20 17:32 Vital Signs Vital Signs - 24 hr 11/26/20 11:03 11/26/20 11:04 11/26/20 12:00 Temperature Pulse Rate 78 Respiratory Rate Blood Pressure 139/102 H 137/113 H Pulse Oximetry 11/26/20 14:00 11/26/20 15:09 11/26/20 15:10 Temperature 36.8 C Pulse Rate 76 70 79 Respiratory Rate 18 Blood Pressure 130/90 130/92 H 104/49 L Pulse Oximetry 99 11/26/20 16:00 11/26/20 19:57 11/26/20 20:00 Temperature 35.8 C L 35.8 C L Pulse Rate 81 88 78 Respiratory Rate 17 17 Blood Pressure 110/71 110/71 Pulse Oximetry 94 94 11/26/20 20:
[2020-11-27] MEDS: SERTRALINE HCL 25 MG TABLET 75 MG PO (11:02)
[2020-11-27 11:39] LABS: EDCOVIDSCREEN Negative (Negative)
[2020-11-27 12:00] VITALS: PULSE 69
== END 2020-11-27 13:30 | DRG 312 ==
LOC: ANHED 09:12 → ANH3MED 16:11
PROVIDERS: Nurse Practitioner Adult Health; Physician Assistant; Admitting Provider Internal Medicine; Emergency Provider General Practice; PCP Family Medicine; Visit Provider Family Medicine
DX: I95.1 Orthostatic hypotension (principal); G20 Parkinson's disease; R53.1 Weakness; R29.6 Repeated falls; Z20.822 Contact with and (suspected) exposure to COVID-19; I10 Essential (primary) hypertension; F41.9 Anxiety disorder, unspecified; I51.7 Cardiomegaly; I73.9 Peripheral vascular disease, unspecified; Z79.82 Long term (current) use of aspirin; Z79.899 Other long term (current) drug therapy; Z86.711 Personal history of pulmonary embolism; Z86.718 Personal history of other venous thrombosis and embolism
CPT/HCPCS: 36415; 70450; 71046; 72100; 73502; 73564; 80053; 81001; 82550; 84443; 85025; 85055; 87086; 87088; 87426; 92610; 93005; 93306; 97161; 97165; 97535; 99285; A9270; C9803; G0378

== ENCOUNTER 2021-01-19 15:10 | Emergency (ER) | payer MEDICARE, OTHER, SELFPAY ==
[2021-01-19] VITALS (22 sets, daily range): BP systolic 112–156; BP diastolic 59–106; PULSE 65–84; RESP 13–18; TEMP 36.4–36.7; O2SAT 99–100
--- NOTE | ~2021-01-19 | XR_ITS ---
EXAMINATION: XR chest 1V DATE: 01/19/2021 19:08 INDICATION: Confusion. TECHNIQUE: A single frontal view of the chest was obtained. COMPARISON: Chest 2 views 11/25/2020, chest CT 09/27/2017 FINDINGS: There is mild atelectasis at the lung bases. No pleural effusion or pneumothorax. Cardiomeg nic is noted. There are multiple old healed right rib fractures. Surgical clips in the right upper qu adrant are likely from cholecystectomy. IMPRESSION: 1. Mild atelectasis at the lung bases. 2. Cardiomegaly. Reviewed, dictated and finalized at location A. TRICAL DESIGN TECHNOLOGIST
--- NOTE | ~2021-01-19 | CT_ITS ---
EXAMINATION: CT brain wo con DATE: 01/19/2021 19:02 INDICATION: Confusion. TECHNIQUE: Computed tomography (CT) of the head was performed without intravenous contrast. The mA wa s adjusted according to patient size. Iterative reconstruction technique was employed. The dose-lengt h product was 605.33 mGy-cm. COMPARISON: Head CT 11/25/2020 FINDINGS: There is no intracranial hemorrhage, acute infarction, or abnormal intracranial mass lesion . There are scattered areas of low attenuation in the cerebral white matter, which is within normal l imits for the patient's age. The ventricles are normal in size. The orbits are normal. The paranasal sinuses are clear. The mastoid air cells are normal. IMPRESSION: 1. Normal aging brain. Reviewed, dictated and finalized at location A. UM HOST/HOSTESS IMPRESSION: 1. Normal aging brain.
--- NOTE | 2021-01-19 18:33 | ECG_ITS ---
Measurements Intervals [place] Rate: 79 P: 29 CT: 143 QRS: -19 QRSD: 108 T: -3 QT: 355 QTc: 409 Interpretive Statements SINUS RHYTHM LEFT ATRIAL ENLARGEMENT INCOMPLETE RIGHT BUNDLE BRANCH BLOCK DELAYED PRECORDIAL R/S TRANSITION POSSIBLE LEFT VENTRICULAR HYPERTROPHY ST-T WAVE ABNORMALITY IN ANTERIOR LEADS- CONSIDER ISCHEMIA BASELINE ARTIFACT- I, II, III, AVR, AVL, AVF, V1-V6 ABNORMAL ECG Electronically Signed On 01-20-2021 6:28:15 MACHINING ASSOCIATE by Chaparro Ramos D.O.
--- NOTE | 2021-01-19 18:36 | PC.NURSE ---
states pt had a meltdown a month ago and has gone downhill since. states is at [facility] for rehab for parkinson for this.
--- NOTE | 2021-01-19 18:44 | ED.AMS ---
HPI - Altered Mental Status General Chief Complaint: Altered Mental Status Stated Complaint: Not responding to verbal /hx parkinsons Time Seen by Provider: 01/19/21 18:30 Source: patient Mode of arrival: wheelchair Limitations: no limitations History of Present Illness HPI narrative: Patient is a 75-year-old female sent from the [facility]way due to confusion started today. states that patient has a history of Parkinson's and currently residing at a nursing rehab facility for speech and physical therapy due to worsening of her Parkinson's, she is weight and I cannot help her anymore at home and she has fallen multiple times and that is why she is at [facility] . states that the patient does not walk normal some month, wheelchair-bound. Patient upon arrival is alert awake and oriented x3, has no complaints at this time. Patient denies any speech or visual disturbance, focal weakness or numbness, chest pain, shortness of breath, pain, nausea, vomiting, diarrhea, urinary symptoms, fever or chills. Related Data Home Medications Medication Instructions Recorded Confirmed Nuplazid 34 mg PO HS 11/25/20 11/25/20 gabapentin 100 mg PO TID 11/25/20 11/25/20 quetiapine 50 mg PO HS 11/25/20 11/25/20 rasagiline 1 mg PO DAILY 11/25/20 11/25/20 sertraline 75 mg PO DAILY 11/25/20 11/25/20 tizanidine See Rx Instructions .ROUTE 11/25/20 11/25/20 .COMPLEX PRN trazodone 100 mg PO HS 11/25/20 11/25/20 Allergies Allergy/AdvReac Type Severity Reaction Status Date / Time amoxicillin Allergy Unknown ,Unknown Verified 11/25/20 17:32 Review of Systems Review of Systems: All systems reviewed & are unremarkable except as noted in HPI and below Constitutional: Constitutional: Denies body ache(s), Denies chills, Denies excessive sweating, Denies fatigue, Denies fever(s), Denies headache(s), Denies lethargy, Denies malaise, Denies weakness and Denies weight loss Eyes: Eyes: Denies blurry vision, Denies change in vision and Denies loss of vision ENT: Denies dizziness, Denies ear discharge, Denies headache(s), Denies lip swelling, Denies epistaxis, Denies nasal congestion, Denies neck pain, Denies throat swelling and Denies tongue swelling Cardiovascular: Cardiovascular: Denies chest pain, Denies chest pain at rest, Denies chest pain with activity, Denies diaphoresis, Denies rapid heart rate, Denies edema, Denies irregular heart rhythm, Denies lightheadedness, Denies palpitations, Denies dyspnea and Denies dyspnea on exertion Respiratory: Respiratory: Denies chest congestion, Denies cough, Denies hemoptysis, Denies dyspnea and Denies dyspnea on exertion Gastrointestinal: Gastrointestinal: Denies abdominal pain, Denies melena, Denies hematochezia, Denies diarrhea, Denies nausea, Denies vomiting and Denies hematemesis Musculoskeletal: Musculoskeletal: Denies abnormal gait, Denies deformity, Denies joint swelling, Denies limited range of motion, Denies neck pain and Denies numbness Neurologic: Denies Abnormal speech present, Denies abnormal gait, Denies confusion, Denies dizziness, Denies headache(s), Denies focal weakness, Denies loss of vision, Denies numbness, Denies Other visual disturbances, Denies Sensory deficit (Neuro) and Denies weakness Psychiatric: Psychiatric: Denies confusion, Denies depression, Denies auditory hallucinations, Denies homicidal ideation and Denies suicidal ideation Endocrine: Endocrine: Denies cold intolerance, Denies excessive sweating, Denies fatigue, Denies heat intolerance and Denies palpitations Hematologic/Lymphatic: Hematologic/Lymphatic: Denies easy bleeding and Denies easy bruising Allergic/Immunologic: Allergic/Immunologic: Denies lip swelling, Denies throat swelling and Denies tongue swelling PMFSH Past Medical History Medical History Anxiety Cardiomegaly Echocardiogram in May 2019 showed a moderately enlarged left ventricular chamber with no
[2021-01-19 19:00] LABS: Basophils Percent Auto 0.3 % (0.2-1.2); Eosinophils Percent Auto 0.7 % (0-4.4); Hematocrit 37.6 % (37.0-47.0); Hemoglobin 12.9 g/dL (12.0-15.0); Immature Granulocyte Absolute 0.02 K/mm3 (0.00-0.031); Immature Granulocyte Percent A 0.3 % (0-0.5); Lymphocytes Absolute Auto 1.81 K/mm3 (0.9-3.2); Lymphocytes Percent Auto 31.3 % (18.3-44.2); Mean Corpuscular HGB Conc 34.3 g/dl (32-36); Mean Corpuscular Hemoglobin 33.1 pg (26-34); Mean Corpuscular Volume 96.4 fl (80-100); Mean Platelet Volume 9.5 fl (7.4-10.4); Monocytes Absolute Auto 0.4 K/mm3 (0.1-0.6); Monocytes Percent Auto 6.6 % (2.6-8.5); Neutrophils Absolute Auto 3.5 K/mm3 (1.3-6.7); Neutrophils Percent Auto 60.8 % (45.5-73.1); Platelet Count Result 162 k/mm3 (150-375); White Blood Count 5.8 K/mm3 (4.5-10.0)
[2021-01-19 19:13] LABS: Alanine Aminotransferase 8 U/L (4-35); Albumin Level 4.2 g/dL (3.5-5.1); Alkaline Phosphatase 103 U/L (38-126); Anion Gap 7 mmol/L (8-16); Aspartate Amino Transferase 19 U/L (14-36); Bilirubin,Total 0.8 mg/dL (0.2-1.3); Blood Urea Nitrogen 23 mg/dL (7-17); Calcium 9.4 mg/dL (8.4-10.2); Carbon Dioxide 28 mmol/L (22-30); Chloride 100 mmol/L (98-107); Estimated Glomerular Filt Rate > 60; Glucose 110 mg/dL (65-110); Potassium 3.6 mmol/L (3.4-5.0); Sodium 135 mmol/L (137-145)
[2021-01-19 19:25] LABS: Troponin I < 0.012 ng/mL (0.000-0.034)
[2021-01-19 19:42] LABS: Partial Thromboplastin Time 26.5 SECONDS (22.3-36.8); Prothrombin Time 12.6 Seconds (11.1-14.7)
[2021-01-19 20:50] LABS: Glucose Point of Care 106 mg/dl (65-105)
[2021-01-19 20:59] LABS: Add Urine Microscopic? YES; Appearance Urine Cloudy (Clear); Bilirubin Urine Negative (Negative); Blood Urine Negative (Negative); Calcium Oxalate Crystals Urine Many /hpf; Color Urine Amber (Yellow); Glucose Urine UA Negative (Negative); Ketones Urine Trace mg/dL (Negative); Leukocyte Esterase Ur Trace LEU/UL (Negative); Mucus Urine Few /lpf; Nitrate Urine Negative (Negative); Protein Urine 1+ mg/dL (Negative); RBC Urine 21-50 /hpf (0-2); Specific Grav Ur 1.023 (1.001-1.035); Squamous Epithelial Cell Urine Few /hpf (Few); WBC Urine 21-30 /hpf
[2021-01-19] MEDS: LORazepam INJ (*CRX) 2 MG/ML VIAL 0.5 MG IV PUSH (21:53)
--- NOTE | 2021-01-19 23:01 | PC.NURSE ---
Report called and given to Staff nurse at pts facility.
== END 2021-01-19 23:01 ==
PROVIDERS: Emergency Provider Emergency Medicine; PCP Family Medicine
DX: R41.82 Altered mental status, unspecified (principal); N39.0 Urinary tract infection, site not specified; I45.10 Unspecified right bundle-branch block; F41.9 Anxiety disorder, unspecified; G20 Parkinson's disease; I51.7 Cardiomegaly; I10 Essential (primary) hypertension; I73.9 Peripheral vascular disease, unspecified; Z96.651 Presence of right artificial knee joint; Z86.718 Personal history of other venous thrombosis and embolism; Z86.711 Personal history of pulmonary embolism
CPT/HCPCS: 36415; 70450; 71045; 80053; 81001; 82948; 84484; 85025; 85610; 85730; 87086; 87088; 93005; 96365; 96375; 99284; J0696; J2060

== ENCOUNTER 2021-01-28 09:35 | Emergency (ER) | payer MEDICARE, OTHER, SELFPAY ==
[2021-01-28] VITALS (36 sets, daily range): BP systolic 91–147; BP diastolic 49–116; PULSE 55–89; RESP 10–20; TEMP 36.6; O2SAT 95–100
--- NOTE | ~2021-01-28 | XR_ITS ---
EXAMINATION: XR chest 1V portable INDICATION: Transient alteration of awareness TECHNIQUE: Portable AP chest at 0951 hours COMPARISON: 01/19/2021 FINDINGS: The lungs are free of acute opacities. There is no pleural effusion or pneumothorax. Cardio megaly is noted. There are healed right-sided rib fractures. There is moderate osteoarthritis of the right shoulder. Thoracolumbar levoscoliosis is noted. IMPRESSION: 1. No acute cardiopulmonary abnormality. 2. Cardiomegaly. Reviewed, dictated and finalized at location A. ONNEL RESEARCH SCIENTIST
--- NOTE | ~2021-01-28 | CT_ITS ---
EXAMINATION: CT abdomen pelvis wo/w con DATE: 01/28/2021 15:08 INDICATION: Hematuria TECHNIQUE: Computed tomography (CT) of the abdomen and pelvis was performed without intravenous contr ast. CT of the abdomen and pelvis was then performed with a total of 130 mL Omnipaque-350 intravenous contrast using a double-bolus technique for simultaneous opacification of the renal parenchyma and r enal collecting system. Automated exposure control and iterative reconstruction technique were employ ed. The dose-length product was 1787.43 mGy-cm. COMPARISON: None FINDINGS: Trace bilateral pleural effusions and mild bibasilar atelectasis. Mild cardiomegaly. No pericardial e ffusion. Mild intra and extra hepatic biliary ductal dilation likely related to prior cholecystectomy with surgical clips at the gallbladder fossa. Spleen, pancreas and bilateral adrenal glands are norm al. Kidneys enhance symmetrically. No evident urolithiasis however sensitivity is significantly limit ed by the small amount of excreted contrast present on the noncontrast images. Bilateral ureters are opacified in their near entirety demonstrating no urothelial irregularities or transition point to ayala ggest fixed obstruction. Small amount of excreted contrast layering in the dependent aspect of the no rmal bladder. The uterus is not identified and has likely been surgically resected. No abnormal bowel wall thickening or obstruction. The appendix is not visualized. No pericecal inflammatory change to suggest acute appendicitis. Mild lumbar dextroscoliosis with severe spondylosis. IMPRESSION: 1. No etiology identified for reported hematuria. No evident urolithiasis however sensitivity for andrew al stones is significantly decreased by the presence of a small amount of excreted contrast which was inadvertently administered prior to obtaining the noncontrast imaging. Reviewed, dictated and finalized at location B. LATORY COMPLIANCE MANAGER IMPRESSION: 1. No etiology identified for reported hematuria. No evident urolithiasis howev er sensitivity for renal stones is significantly decreased by the presence of a small amount of excreted contrast which was inadvertently administered prior t o obtaining the noncontrast imaging.
[2021-01-28 09:48] LABS: Glucose Point of Care 160 mg/dl (65-105)
[2021-01-28] MEDS: LACTATED RINGERS 1,000 ML 999 ML IV CONT (10:34)
[2021-01-28 10:44] LABS: Add Urine Microscopic? YES; Appearance Urine Cloudy (Clear); Bilirubin Urine Negative (Negative); Blood Urine Negative (Negative); Color Urine Amber (Yellow); Glucose Urine UA Negative (Negative); Ketones Urine Trace mg/dL (Negative); Leukocyte Esterase Ur Negative LEU/UL (Negative); Mucus Urine Few /lpf; Nitrate Urine Negative (Negative); Protein Urine Negative (Negative); RBC Urine 51-75 /hpf (0-2); Specific Grav Ur 1.023 (1.001-1.035); Squamous Epithelial Cell Urine Rare /hpf (Few)
[2021-01-28 10:45] LABS: Basophils Percent Auto 0.2 % (0.2-1.2); Eosinophils Absolute Auto 0.1 K/mm3 (0-0.3); Eosinophils Percent Auto 1.5 % (0-4.4); Hematocrit 33.7 % (37.0-47.0); Hemoglobin 11.5 g/dL (12.0-15.0); Immature Granulocyte Absolute 0.03 K/mm3 (0.00-0.031); Immature Granulocyte Percent A 0.6 % (0-0.5); Immature Platelet Fraction Pct 2.8 % (0.9-11.2); Lymphocytes Absolute Auto 0.72 K/mm3 (0.9-3.2); Lymphocytes Percent Auto 13.6 % (18.3-44.2); Mean Corpuscular HGB Conc 34.1 g/dl (32-36); Mean Corpuscular Hemoglobin 33.1 pg (26-34); Mean Corpuscular Volume 97.1 fl (80-100); Mean Platelet Volume 9.7 fl (7.4-10.4); Monocytes Absolute Auto 0.3 K/mm3 (0.1-0.6); Monocytes Percent Auto 6.3 % (2.6-8.5); Neutrophils Absolute Auto 4.1 K/mm3 (1.3-6.7); Neutrophils Percent Auto 77.8 % (45.5-73.1); Platelet Count Result 145 k/mm3 (150-375); Red Blood Count 3.47 M/mm3 (4.2-5.4); Red Cell Distribution Width 12.9 % (11.5-14.5); White Blood Count 5.3 K/mm3 (4.5-10.0)
[2021-01-28 11:01] LABS: Alanine Aminotransferase 6 U/L (4-35); Albumin Level 3.2 g/dL (3.5-5.1); Alkaline Phosphatase 82 U/L (38-126); Anion Gap 4 mmol/L (8-16); Aspartate Amino Transferase 18 U/L (14-36); Bilirubin,Total 0.4 mg/dL (0.2-1.3); Blood Urea Nitrogen 33 mg/dL (7-17); Calcium 8.4 mg/dL (8.4-10.2); Carbon Dioxide 28 mmol/L (22-30); Chloride 103 mmol/L (98-107); Estimated CRCL calculation 41 ml/min; Estimated Glomerular Filt Rate 54; Glucose 125 mg/dL (65-110); Potassium 3.9 mmol/L (3.4-5.0); Sodium 135 mmol/L (137-145)
[2021-01-28 11:13] LABS: Troponin I < 0.012 ng/mL (0.000-0.034)
--- NOTE | 2021-01-28 13:15 | PC.NURSE ---
REQUESTING UPDATE ON PT CONDITION. DR LO MADE AWARE OF NEED TO UPDATE PT AND FAMILY
--- NOTE | 2021-01-28 14:21 | ED.AMS ---
HPI - Altered Mental Status General Chief Complaint: Altered Mental Status Stated Complaint: AMS, WEAK Time Seen by Provider: 01/28/21 09:45 Source: patient and EMS Mode of arrival: EMS Limitations: clinical condition History of Present Illness HPI narrative: 75-year-old female History of Parkinson's Sent from SNF for lethargy/altered mental status and low blood pressure She received some IV fluid from EMS and upon arrival here really has no complaints that she is not quite sure why they sent her over here She denies shortness of breath or a cough or any chest pain No nausea or vomiting no diarrhea no urinary symptoms no abdominal pain She think she has been eating okay does not think she is missed any of her Parkinson's meds About a month ago she visited the ER for roughly the same thing and was thought to have a UTI at that time however urine cultures ultimately were negative After she had been here for a while her arrived and thought she looked more or less baseline to him Related Data Allergies Allergy/AdvReac Type Severity Reaction Status Date / Time amoxicillin Allergy Unknown ,Unknown Verified 11/25/20 17:32 Review of Systems Review of Systems: All systems reviewed & are unremarkable except as noted in HPI and below Constitutional: Constitutional: Denies chills, Reports fatigue, Denies fever(s), Denies headache(s) and Reports weakness Eyes: Eyes: Reports no additional eye complaints and Denies change in vision ENT: Denies headache(s) and Denies sore throat Cardiovascular: Cardiovascular: Denies chest pain and Denies dyspnea Respiratory: Respiratory: Denies cough and Denies dyspnea Gastrointestinal: Gastrointestinal: Denies abdominal pain, Denies diarrhea and Denies vomiting Genitourinary: Genitourinary: Denies urinary frequency and Denies dysuria Musculoskeletal: Musculoskeletal: Reports back pain, Reports myalgias, Denies deformity and Denies numbness Integumentary/Breasts: Skin/Breast: Denies rash and Denies wounds Neurologic: Reports dizziness, Denies headache(s), Denies focal weakness, Denies numbness and Reports weakness Comments: Tremor Psychiatric: Psychiatric: Reports no additional psychiatric complaints Endocrine: Endocrine: Reports no additional endocrine complaints Hematologic/Lymphatic: Hematologic/Lymphatic: Reports no additional hematologic/lymphatic complaints Allergic/Immunologic: Allergic/Immunologic: Reports no additional allergic/immunologic complaints PMFSH Past Medical History Medical History Anxiety Cardiomegaly Echocardiogram in May 2019 showed a moderately enlarged left ventricular chamber with normal systolic function and an EF estimated at 60 to 65% with grade 1 diastolic dysfunction. Essential (primary) hypertension Gallstone pancreatitis Parkinson's disease Peripheral vascular disease Pulmonary embolism Right leg DVT Surgical History Surgical History History of cholecystectomy History of hysterectomy (1995) History of local excision of skin lesion Hemangioma from the less chest. 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 Lives in [place] with her . Nonsmoker. No alcohol or illicit substance abuse. Surrogate decision maker: Arian Tejada. Code status: Full code. Exam Const: General: cooperative and no acute distress Nutritional Appearance: thin Orientation/consciousness: patient oriented x3 (alert) Other: Frail, elderly HENMT: Head: normal to inspection, no
== END 2021-01-28 16:32 ==
PROVIDERS: Emergency Provider Emergency Medicine; PCP Family Medicine
DX: G20 Parkinson's disease (principal); E86.0 Dehydration; I95.9 Hypotension, unspecified; I10 Essential (primary) hypertension; Z86.718 Personal history of other venous thrombosis and embolism
CPT/HCPCS: 36415; 51701; 71045; 74178; 80053; 81001; 82948; 84484; 85025; 85055; 87086; 96360; 99284; J7120; Q9967